=== PATIENT | male | born 1970 | race Caucasian/White ===

== ENCOUNTER 2025-02-08 13:43 | Outpatient (OUT) | payer OTHER, SELFPAY ==
--- NOTE | 2025-02-08 15:05 | PM.CN ---
Consult Note: HPI Data of Consult Patient: new to practice Consult date: 02/08/25 Requesting Physician: Jennifer Pérez NP Primary Care Provider: Delilah Savage NP Consult Narrative Reason for consult: low back and LLE pain Narrative: Louie Sterling a pleasant 54 year old male presents for evaluation of low back, left SIJ, and LLE pain >12 months unresponsive to > 6 weeks of PT/HEP, heat, ice, tylenol, NSAIDs. recently met with NS, however pt is not interested in surgical intervention. Pain 7/10 increasing to 10/10 at times, pain with all activities with temporary relief with position changes, squatting, sitting. notes numbness tingling to left leg and foot worsening. has failed tizanidine, motrin, tylenol cc:: CC: Jennifer Pérez NP Review of Systems ROS Musculoskeletal Reports: back pain, extremity pain and joint pain Exam Constitutional Documenting provider has reviewed patient's vital signs: yes Common normals: no apparent distress, oriented x3, healthy appearing, alert and well nourished General appearance: cooperative HENMT Common normals: normocephalic, hearing grossly normal bilaterally and moist oral mucous membranes Head and scalp: normocephalic Eye Common normals: PERRL Pupil: PERRL Neck & C-Spine Common normals: full ROM General: normal visual inspection Chest Common normals: inspection of chest normal Respiratory Common normals: normal respiratory effort, no retractions and no use of accessory muscles Back & Pelvis Lumbar spine/lower back: pain with ROM, lumbar spinal tenderness and straight leg raise positive left Sacroiliac joints: SI joint(s) abnormal Other: decreased sensation bilateral L4/5 left L5/S1 strength 4/5 in BLE left sij positive carlitos(patricks), gaenslens, thigh thrust, compression test Extremity Common normals: normal to inspection Neuro Common normals: oriented x3 Sensorium/orientation: alert Psych Common normals: mental status grossly normal, thought process normal, cooperative, affect normal, speech normal and activity/motor behavior normal Speech: normal speech Thought process: normal thought process Results Additional Findings Additional findings: If on a controlled substance or opioids, I have checked an [place]AR[place] report on this patient and there are no aberrancies noted in the prescribing history.??If on a controlled substance or opioid a drug screen was completed and reviewed within the last year, and if there has not been a drug screen completed we ordered one today to monitor higher risk, state monitored pain medication use. As part of providing excellent, safe, comprehensive care, the following was completed at our patient's visit: 1. A medication reconciliation and review to ensure accurate knowledge of current/active medications, including asking our patients to inform us about any kdsx-erj-temlvxn medications or herbal remedies/nutritional supplements/alternative remedies. 2. A review to specifically ensure our patients have had annual screening for screening for depression, screening for tobacco use, and screening for unhealthy alcohol use. For concerning screenings had a discussion with the patient, provided patient education, and recommended follow-up with primary care provider when appropriate. If patient noted with a risk of falling, they received education on strength, gait, and balance training to prevent future risk of falling. Portions of this note may have been carried over from the previous visit and updated as appropriate. Please note this office utilizes paper charting in addition to the electronic medical record. A list of current medications, vitals, and PMH is available there as the clinical staff outside of myself do not have access to [employer] charting during the clinic day operations. As part of providing quality comprehensive care the current medications, vitals, and PMH were reviewed in the paper chart. Assessment and Plan Assessment and Plan (1) Lumbar stenosis with neurogenic claudication: (2) Sacroiliitis: Plan The patient has had over 3 months of moderate to severe left SIJ, low back, and LLE pain with functional impairment and inadequate response to conservative care including NSAIDS (unless there are contraindication such as concurrent blood thinners), multiple oral or topical pain medications, and home exercise program/physical therapy.? Patient has completed >6 weeks of guided home exercise program and/or formal physical therapy program without relief of their symptoms.? The Oswestry Disability Index was completed, and the patient scored a 52%.? left L4-5 L5-S1 TFESI under fluoroscopy consider left SIJ injection dc ibuprofen, start meloxicam 7.5mg bid with food consider gabapentin f/u after injection
== END 2025-02-08 13:44 | disposition home or self-care (01) ==
PROVIDERS: Visit Provider Nurse Practitioner
DX: M48.062 Spinal stenosis, lumbar region with neurogenic claudication (principal); M46.1 Sacroiliitis, not elsewhere classified
CPT/HCPCS: G0463

== ENCOUNTER 2025-03-19 09:51 | Day surgery (SDC) | payer OTHER, SELFPAY ==
--- OUTSIDE RECORDS SUMMARY | 2025-03-19 09:55 | XMS_ITS | Encounter Summary ---
Author Organization [facility] Address [facility] [id number] [address] [place] [address] Care Team Providers Care Lumber Bearer Name Role Phone Delilah Savage MICROBIOLOGY TECHNICIAN-CORRECTION OFFICER HEAD Primary Care Provider + Encounter Details Date Type Department Care Team (Late st Contact Info) Description 02/08/2025 Results Follow-Up [facility], [facility] [address] [facility] [address] [place] [address] Madisyn Zapata, MICROBIOLOGY TECHNICIAN-CORRECTION OFFICER HEAD [address] [place] [address] MR lumbar spine without contrast Social History Tobacco Use Types Packs/Day Years Used Date Smoking Tobacco: Never Smokeless Tobacco: Never Alcohol Use Standard Drinks/Week Comments Not Currently 0 (1 standard drink = 0.6 oz pur e alcohol) Childcare Answer Date Recorded Childcare Unknown 06/07/2020 Employment Answer Date Recorded Employment Unknown 06/07/2020 Hunger Screening Answer Date Recorded Within the past 12 months we worried whether our food would run out before we got money to buy more. Never True 01/04/2025 Within the past 12 months th e food we bought just didn't last and we didn't have money to get more. Never True 01/04/2025 Purpose - Life Answer Date Recorded Purpose and direction in life Unknown Sex and Gender Information Value Date Recorded Sex Assigned at Not on file Legal Sex Male 8:50 PM EST Gender Identity Not on file Sexual Orientation Not on file documented as of this encounter Plan of Treatment Not on file documented as of this encounter Visit Diagnoses Not on filedocumented in this encounter Additional Health Concerns Assessment Noted Time A Body Mass Index follow-up plan has been documented for the patient 01/04/2025 5:01 PM EDT documented as of this encounter Care Teams Lumber Bearer Relationship Specialty Start Date End Date Delilah Savage APRN-CNP [address] [place] [address] PCP - General Nurse Practitioner 12/22/24 documented as of this encounter
--- OUTSIDE RECORDS SUMMARY | 2025-03-19 09:55 | XMS_ITS | Clinical Summary ---
Author Organization [facility] Address [facility] [id number] [address] [place] [address] Care Team Providers Care Sheep Sorter Name Role Phone Delilah Savage AUDITING MANAGER-WORKFORCE ANALYST Primary Care Provider + Allergies No known active allergies Medications losartan (COZAAR) 100 mg tablet 02/15/2023 Active omega-3 acid ethyl esters (LOVAZA) 1 gram capsule Take 1 capsule (1 g total) by mouth in the morning. 12/22/2024 Active tiZANidine (ZANAFLEX) 4 mg tablet Take 1 tablet (4 mg total) by mouth 3 (three) times a day as needed. 11/03/2024 Active ibuprofen (MOTRIN) 600 mg tablet Take 1 tablet (600 mg total) by mouth every 8 (eight) hours as needed for pain. 12/23/2024 Active amLODIPine (NORVASC) 5 mg tablet Take 1 tablet (5 mg total) by mouth in the morning. 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/01/2021 Lumbar spondylosis 10/01/2021 Encounters Date Type Department Care Team Description 02/19/2025 Telephone [facility] [address] [place] [address] Katelyn Solares CNA Pain Managment 02/09/2025 Telephone [facility] [address] [place] [address] Tali Mahoney RMA 02/08/2025 Results [facility] [address] [place] [phone] Madisyn Zapata, AUDITING MANAGER-WORKFORCE ANALYST MR lumbar spine without contrast 02/06/2025 4:25 PM EDT - 02/06/2025 11:59 PM EDT Hospital Encounter [facility] [address] [place] [phone] Chronic bilateral low back pain with left-sided sciatica; Lumbar facet arthropathy; Lumbar disc disease Discharge Disposition: Home 02/06/2025 Travel 01/16/2025 Telephone [facility] [address] [place] [phone] Tali Mahoney, A 01/04/2025 3:30 PM EDT Office Visit [facility] [address] [place] [phone] Madisyn Zapata, AUDITING MANAGER-WORKFORCE ANALYST Chronic bilateral low back pain with left-sided sciatica (Primary Dx); Lumbar facet arthropathy; Lumbar disc disease 12/22/2024 Orders Only [facility] [address] [place] [phone] Tali Mahoney, [facility] Back pain, unspecified back location, unspecified back pain laterality, unspecified chronicity (Primary Dx) from Last 3 Months Family History Medical History Relation Name Comments Cancer Father Cancer Mother Relation Name Status Comments Father Mother Social History Tobacco Use Types Packs/Day Years Used Date Smoking Tobacco: Never Smokeless Tobacco: Never Tobacco Cessation:Counseling Given: Not Answered Alcohol Use Standard Drinks/Week Comments Not Currently [...] on file Sexual Orientation Not on file Last Filed Vital Signs Vital Sign Reading Time Taken Comments Blood Pressure 142/86 01/04/2025 3:23 PM EDT Pulse 93 01/04/2025 3:23 PM EDT Temperature 36.7 C (98 F) 12/10/2021 11:26 AM EDT Respiratory Rate 20 12/10/2021 11:26 AM EDT Oxygen Saturation 97% 12/10/2021 11:26 AM EDT Inhaled Oxygen Concentration - - Weight 85.3 kg (188 lb) 01/04/2025 3:23 PM EDT Height 165.1 cm (5' 5 ) 01/04/2025 3:23 PM EDT Body Mass Index 31.28 01/04/2025 3:23 PM EDT Plan of Treatment Health Maintenance Due Date Last Done Comments Depression Screening 1981 DTaP,Tdap and Td Vaccines (1 - Tdap) 1988 Zoster (Shingles) Vaccine (1 of 2) 09/06/2019 Influenza Vaccine 01/29/2025 Adult BMI Follow Up Plan 01/04/2026 01/04/2025 Adult BMI Screening 01/04/2026 01/04/2025 Tobacco Screening 01/04/2026 01/04/2025 Medical Devices Not on file Procedures Procedure Name Priority Date/Time Associated Diagnosis Comments MR LUMBAR SPINE WO CONT Routine 02/06/2025 4:58 PM EDT Chronic bilateral low back pain with left-sided sciatica Lumbar facet arthropathy Lumbar disc disease from Last 3 Months Results * MR lumbar spine without contrast (02/06/2025 4:58 PM EDT) Anatomical Region Laterality Modality MSK, Neuro, Spine, L-spine, Spine Covera N/A Magnetic Resonance 02/08/2025 12:4 6 PM EDT Narrative 02/08/2025 12:53 PM EDT LUMBAR SPINE MRI WITHOUT CONTRAST History: Back pain persistent despite conservative management for greater than 6 weeks. Radiculopathy.Chronic bilateral low back pain with left-sided sciatica; Lumbar facet arthropathy; Lumbar disc disease Comparison: None. Technique: Multiplanar multisequence MR imaging of the lumbar spine was performed without contrast. Findings: Transitional lumbosacral anatomy with partial lumbarization of S1. Intercristal line approximates L4-5 disc space. Preserved lumbar vertebral body heights. Straightening typical lumbar lordosis. No substantial listhesis. No suspicious bone marrow replacing process. Modic 2 changes about L5-S1. Conus terminates at L2-3, no distal cord signal change. T12-L1:No substantial focal thecal sac or neural foraminal narrowing. L1-L2:No substantial focal thecal sac or neural foraminal narrowing. L2-L3:Disc bulge extends into the foraminal and extra foraminal regions. The mentum from thickening. Mild thecal sac and left greater than right neural frontal stenosis. L3-L4:Disc bulge extends into the foraminal and extra foraminal regions. Ligamentum flavum thickening. Mild thecal sac and bilateral neural frontal stenosis. L4-L5:Disc bulge, marginal disc osteophyte extends into the right greater than left foraminal and axial foraminal regions. Ligamentum flavum thickening. Moderate thecal sac stenosis. Moderate bilateral neural foraminal stenosis, right more so than left. Crowding of the left greater than right subtalar zone without bolivar nerve root impingement. L5-S1:Disc bulge, marginal disc osteophyte extends into the left greater than right foraminal and extra foraminal regions, notable peripheral displacement exiting left L5 nerve [series 10 image #[id number]]. Asymmetric crowding left-sided articular zone [series 10 image #20]. Moderate thecal sac stenosis. Moderate to severe left, lajt-zv-etdqpflh right, neural frontal stenosis. S1-S2: Near-complete disc space. Minimal thecal sac and neural foraminal stenosis. Left upper pole renal parenchymal volume loss. Impression: 1. Transitional lumbosacral anatomy, level reconciliation advised prior to intervention. Notable moderate to severe left L5-S1 neural foraminal stenosis, mass effect on exiting left L5 nerve, please correlate for associated symptoms. Notable asymmetric crowding of left L5-S1 subarticular zone, no bolivar nerve root impingement. 2. Additional notable degenerative changes at L4-5 with moderate thecal sac and bilateral neural frontal stenosis, right more so than left. Finalized by Rishabh Hernandez MD on 02/08/2025 12:53 PM Procedure Note Rishabh Hernandez MD - 02/08/2025 LUMBAR SPINE MRI WITHOUT CONTRAST History: Back pain persistent despite conservative management for greaterthan 6 weeks. Radiculopathy.Chronic bilateral low back pain withleft-sided sciatica; Lumbar facet arthropathy; Lumbar disc disease Comparison: None. Technique: Multiplanar multisequence MR imaging of the lumbar spine wasperformed without contrast. Findings: Transitional lumbosacral anatomy with partial lumbarization of S1.Intercristal line approximates L4-5 disc space. Preserved lumbar vertebralbody heights. Straightening typical lumbar lordosis. No substantiallisthesis. No suspicious bone marrow replacing process. Modic 2 changesabout L5-S1. Conus terminates at L2-3, no distal cord signal change. T12-L1:No substantial focal thecal sac or neural foraminal narrowing. L1-L2:No substantial focal thecal sac or neural foraminal narrowing. L2-L3:Disc bulge extends into the foraminal and extra foraminal regions.The mentum from thickening. Mild thecal sac and left greater than rightneural frontal stenosis. L3-L4:Disc bulge extends into the foraminal and extra foraminal regions.Ligamentum flavum thickening. Mild thecal sac and bilateral neural frontalstenosis. L4-L5:Disc bulge, marginal disc osteophyte extends into the right greaterthan left foraminal and axial foraminal regions. Ligamentum flavumthickening. Moderate thecal sac stenosis. Moderate bilateral neuralforaminal stenosis, right more so than left. Crowding of the left greaterthan right subtalar zone without bolivar nerve root impingement. L5-S1:Disc bulge, marginal disc osteophyte extends into the left greaterthan right foraminal and extra foraminal regions, notable peripheraldisplacement exiting left L5 nerve [series 10 image #[id number]]. Asymmetriccrowding left-sided articular zone [series 10 image #20]. Moderate thecalsac stenosis. Moderate to severe left, imyo-uf-gvljkvcb right, neural frontalstenosis. S1-S2: Near-complete disc space. Minimal thecal sac and neural foraminalstenosis. Left upper pole renal parenchymal volume loss. Impression: 1. Transitional lumbosacral anatomy, level reconciliation advised prior tointervention. Notable moderate to severe left L5-S1 neural foraminalstenosis, mass effect on exiting left L5 nerve, please correlate forassociated symptoms. Notable asymmetric crowding of left L5-V4fczsqlrdmwgh zone, no bolivar nerve root impingement. 2. Additional notable degenerative changes at L4-5 with moderate thecalsac and bilateral neural frontal stenosis, right more so than left. Finalized by Rishabh Hernandez MD on 02/08/2025 12:53 PM Madisyn Zapata AUDITING MANAGER-WORKFORCE ANALYST IMG MRI ORDERABLES Jes l Result from Last 3 Months Insurance [employer] Care Teams Sheep Sorter Relationship Specialty Start Date End Date Delilah Savage APRN-NESS [address] [place] [address] PCP - General Nurse Practitioner 12/22/24
--- OUTSIDE RECORDS SUMMARY | 2025-03-19 09:55 | XMS_ITS | Encounter Summary ---
Author Organization [facility] Address [id number] [address] [facility] [place] [address] Care Team Providers Care Meat Seafood Associate Name Role Phone Delilah Savage PLANER MILL GRADER-DRY PRIMER POWDER BLENDER Primary Care Provider + Encounter Details Date Type Department Care Team (Late st Contact Info) Description 02/09/2025 Telephone [facility] [address] [facility] [address] [place] [address] Tali Mahoney RMA Social History Tobacco Use Types Packs/Day Years [...] on file documented as of this encounter Miscellaneous Notes * Telephone Encounter - ELADIA Crowder - 02/09/2025 3:15 PM EDT Patient called today stating pain management gave him meloxicam to take instead of ibuprofen. Patient stated he read that meloxicam does not mix well with blood pressure medications and he doesn't want to take it. I advised him that you are out of the office until 02/21/25 and he can continue with his ibuprofen as long as he doesn't take the meloxicam. I also advised him he could call [facility] on Wednesday to discuss this issue with them. Patient stated he will wait to hear back from you. Also advised him I faxed his MRI results to pain management. * Telephone Encounter - DESMOND De La Garza - 02/09/2025 3:15 PM EDT He should discuss the use with pain management or whomever prescribes his BP medications. Meloxicamand Ibuprofen both can increase risk of renal impairment and elevated levels of potassium with Losartan and may decrease BP lowering effects with both of his BP meds. Taking NSAIDs with his BP medications may just require BP and lab monitoring. * Telephone Encounter - ELADIA Crowder - 02/09/2025 3:15 PM EDT LMOVM advising patient to contact the office to discuss recommendations. documented in this encounter Plan of Treatment Not on file documented as of this encounter Visit Diagnoses Not on filedocumented in this encounter Additional Health Concerns Assessment Noted Time A Body Mass Index follow-up plan has been documented for the patient 01/04/2025 5:01 PM EDT documented as of this encounter Care Teams Meat Seafood Associate Relationship Specialty Start Date End Date Delilah Savage APRN-CNP [address] [place] [address] PCP - General Nurse Practitioner 12/22/24 documented as of this encounter
--- OUTSIDE RECORDS SUMMARY | 2025-03-19 09:55 | XMS_ITS | Encounter Summary ---
Author Organization [employer] Sys tem Address [facility]-[id number] [address] [place] [address] Care Team Providers Care Project Drilling Engineer Name Role Phone Delilah Savage SERVICE TRANSFORMER REPAIR [facility] Primary Care Provider + Reason for Referral * Consultation (Routine) - Pending Review Specialty Diagnoses / Procedures Referred By Gem paez Referred To Contact Pain Medicine Diagnoses Chronic bilateral low back pain with left-sided sciatica Lumbar facet arthropathy Lumbar disc disease Madisyn Zapata APRN-CNP [address] [place] [phone] Phone: tel: fax: David Flynn MD [address] [place] [address] Phone: tel: fax: Referral ID Status Reason Start Date Expiration Date V isits Requested Visits Authorized [id number] Pending Review 01/17/2025 01/17/2026 1 1 Encounter Details Date Type Department Care Team (Late st Contact Info) Description 01/16/2025 Telephone [facility] [address] [place] [address] Tali Mahoney RMA Social History Tobacco Use [...] * Telephone Encounter - ELADIA Crowder - 01/16/2025 2:57 PM EDT [facility] Patient called today asking if you found him a new pain management location. Upon chart review, I advised him that you ordered a lumbar MRI and asked him if he has scheduled it. Patient stated he thought you were going to schedule the MRI. I advised him that the number to central scheduling was at the top of the MRI order and that he needs to call to schedule it. Patient stated he found his orderand will call central scheduling to get it scheduled. Patient asked if there is anything else he can take besides aspirin because that is not helping with the pain. * Telephone Encounter - DESMOND De La Garza - 01/16/2025 2:57 PM EDT I was awaiting MRI before referring to new pain management provider. Ibuprofen not helping. Tizanidine makes him tired so he only takes at night. I advised him to try taking Tylenol. Patient said his friend recommended Dr Melvin Salas [phone] in [facility] for pain management. When I look him up it says neurology. Will have to call office to see if they do lumbar pain injections. I will update patient when we get a hold of them. * Telephone Encounter - DESMOND De La Garza - 01/16/2025 2:57 PM EDT I spoke to Dr Salas's office and he does not do epidural type spinal injections only trigger point injections for muscular symptoms. Patient would be better off going to a true pain management provider. Would he like a referral to [facility] [phone] or [facility] [phone] * Telephone Encounter - ELADIA Crowder - 01/16/2025 2:57 PM EDT Patient notified and stated he will try [facility] for pain management. I advised patient I will callhim back if you put in the referral before getting his MRI results and if he doesn't hear from either of us, you will wait to see what the MRI results show. Patient verbalized understanding. * Telephone Encounter - DESMOND De La Garza - 01/16/2025 2:57 PM EDT Referral placed to [facility]. We can send referral now and then send MRI after. * Telephone Encounter - ELADIA Crowder - 01/16/2025 2:57 PM EDT Patient notified and verbalized understanding. Referral faxed to [facility], fax confirmation received. Patient scheduled for consult on 01/31/25. documented in this encounter Plan of Treatment Scheduled Referrals Name Type Priority Associated Diagnoses Order Schedule Ambulatory referral to Pain Management (Non-[facility]) Outpatient Referral Routine Chronic bilateral low back pain with left-sided sciatica Lumbar facet arthropathy Lumbar disc disease 1 Occurrences starting 01/17/2025 until 01/17/2026 documented as of this encounter Visit Diagnoses Diagnosis Chronic bilateral low back pain with left-sided sciatica- Primary Lumbar facet arthropathy Spondylosis of unspecified site without mention of myelopathy Lumbar disc disease Other and unspecified disc disorder of lumbar region documented in this encounter Additional Health Concerns Assessment Noted Time A Body Mass Index follow-up plan has been documented for the patient 01/04/2025 5:01 PM EDT documented as of this encounter Care Teams Project Drilling Engineer Relationship Specialty Start Date End Date Delilah Savage APRN-CNP [address] [place] [address] PCP - General Nurse Practitioner 12/22/24 documented as of this encounter
--- OUTSIDE RECORDS SUMMARY | 2025-03-19 09:55 | XMS_ITS | Clinical Summary ---
Author Organization [employer] [facility] Address [address], [address] [place] [address] Care Team Providers Care Tuck Pointer Name Role Phone Sagrario Delvalle VARNISH MAKER - CARDIOVASCULAR DISEASE SPECIALIST Primary Care Provider [phone] Allergies No known active allergies Medications amLODIPine (NORVASC) 5 MG tablet Take 1 tablet by mouth daily 11/07/2024 Active ibuprofen (ADVIL;MOTRIN) 600 MG tablet TAKE 1 TABLET BY MOUTH THREE TIMES DAILY WITH FOOD OR MILK NEEDED 11/03/2024 Active losartan (COZAAR) 100 MG tablet Take 1 tablet by mouth daily 11/02/2024 Active [place]-3 Fatty Acids (FISH OIL) 1000 MG capsule Take by mouth daily 08/30/2024 Active tiZANidine (ZANAFLEX) 4 MG tablet Take 1 tablet by mouth 3 times daily as needed 11/03/2024 Active Active Problems No known active problems Social History Tobacco Use Types Packs/Day Years Used Date Smoking Tobacco: Unknown Tobacco Cessation:Counseling Given: Not Answered Alcohol Use Standard Drinks/Week Comments Never 0 (1 standard drink = 0.6 oz pur e alcohol) Sex and Gender Information Value Date Recorded Sex Assigned at Not on file Legal Sex Male 3:57 PM EDT Gender Identity Not on file Sexual Orientation Not on file Last Filed Vital Signs Vital Sign Reading Time Taken Comments Blood Pressure 139/97 11/16/2024 1:35 PM EDT Pulse 69 11/16/2024 1:35 PM EDT Temperature - - Respiratory Rate - - Oxygen Saturation - - Inhaled Oxygen Concentration - - Weight 84.8 kg (187 lb) 11/16/2024 1:35 PM EDT Height - - Body Mass Index - - Plan of Treatment Health Maintenance Due Date Last Done Comments Depression Screen 1981 HIV screen 1984 Hepatitis C screen 09/06/1987 DTaP/Tdap/Td vaccine (1 - Tdap) 1988 Hepatitis B vaccine (1 of 3 - 19+ 3-dose series) 1988 Lipids 2009 Colonoscopy 2014 Colorectal Cancer Screen 2014 FIT/FOBT: Average risk 2014 Fecal-DNA (Cologuard): Average risk 2014 Sigmoidoscopy/CT colonography 2014 Pneumococcal 50+ years Vacci ne (1 of 1 - PCV) 09/06/2019 Shingles vaccine (1 of 2) 09/06/2019 Flu vaccine (#1) 12/29/2024 COVID-19 Vaccine (1 - 2023-2 5 season) 2025 Hepatitis A vaccine Aged Out No longe r eligible based on patient's age to complete this topic Hib vaccine Aged Out No longer eligi ble based on patient's age to complete this topic Meningococcal (ACWY) vaccine Aged Out No longer eligible based on patient's age to complete this topic Meningococcal B vaccine Aged Out No l onger eligible based on patient's age to complete this topic Polio vaccine Aged Out No longer elig ible based on patient's age to complete this topic Insurance [employer] [place] [employer] Care Teams Tuck Pointer Relationship Specialty Start Date End Date Sagrario Delvalle APRN - NP [address] [place] [address] PCP - General Nurse Practitioner 09/26/24
--- OUTSIDE RECORDS SUMMARY | 2025-03-19 09:55 | XMS_ITS | Clinical Summary ---
Author Organization [facility] Healthcare Address [address] [place] [address] Care Team Providers Care Tentering Machine Off Bearer Name Role Phone Unallocated, Martha Provider Primary Care Provi wilton Allergies No known active allergies Medications losartan (Cozaar) 100 MG tablet Take 100 mg by mouth 1 (one) time each day at the same time 02/15/2023 Active tiZANidine (Zanaflex) 4 MG tablet Take 4 mg by mouth 3 (three) times a day as needed 03/17/2023 Active omega-3 (fish oil) 1000 MG capsule Take 1 capsule by mouth 1 (one) time each day at the same time 03/23/2023 Active Active Problems Problem Noted Date Diagnosed Date Sensorineural hearing loss (SNHL), bilateral 02/2024 Left ear impacted cerumen 06/09/2023 Hypertension 06/07/2023 GERD (gastroesophageal reflux disease) SNHL (sensorineural hearing loss) 06/07/2023 Disorder of sacrum 10/01/2021 Lumbar neuritis 10/01/2021 Lumbar spondylosis 10/01/2021 Family History Medical History Relation Name Comments Hypertension Father Stroke Father Hypertension Mother Stroke Mother Relation Name Status Comments Father Mother Social History Tobacco Use Types Packs/Day Years Used Date Smoking Tobacco: Never Smokeless Tobacco: Never Tobacco Cessation:Counseling Given: Not Answered Alcohol Use Standard Drinks/Week Comments Not Currently 0 (1 standard drink = 0.6 oz pur e alcohol) Sex and Gender Information Value Date Recorded Sex Assigned at Not on file Legal Sex Male 8:56 AM EDT Gender Identity Not on file Sexual Orientation Not on file Last Filed Vital Signs Vital Sign Reading Time Taken Comments Blood Pressure 149/91 12/15/2023 1:32 PM EDT Pulse - - Temperature - - Respiratory Rate - - Oxygen Saturation - - Inhaled Oxygen Concentration - - Weight 83.5 kg (184 lb) 12/15/2023 1:32 PM EDT Height 165.1 cm (5' 5 ) 12/15/2023 1:32 PM EDT Body Mass Index 30.62 12/15/2023 1:32 PM EDT Plan of Treatment Health Maintenance Due Date Last Done Comments CT Colonography 1969 Colonoscopy 1969 Colorectal Cancer Screening 1969 FIT-DNA 1969 FIT 1969 FOBT 1969 Sigmoidoscopy 1969 Influenza Vaccine (#1) 2025 Insurance [employer] Care Teams Tentering Machine Off Bearer Relationship Specialty Start Date End Date Unallocated, Noms Provider, [address] [place], [place] [id number] PCP - General 03/24/23
[2025-03-19 10:04] VITALS: BP 139/83; PULSE 75; TEMP 36.2; O2SAT 100
[2025-03-19 10:43] VITALS: BP 145/67; PULSE 72; O2SAT 97
[2025-03-19 10:44] VITALS: BP 140/65; PULSE 67; O2SAT 97
[2025-03-19] MEDS: BUPIVACAINE HCL 0.25% PF 25 MG/10 ML VIAL INJ (10:45)
[2025-03-19] MEDS: LIDOCAINE HCL 2% 400 MG/20 ML MDV INJ (10:45)
[2025-03-19] MEDS: 0.9 % SODIUM CHLORIDE 10 ML SYRINGE - SALINE FLUSH INJ (10:45)
[2025-03-19] MEDS: IOHEXOL 240 MG/ML - 10 ML VIAL 24 MG INJ (10:45)
[2025-03-19] MEDS: METHYLPREDNISOLONE ACETATE 80 MG/ML VIAL INJ (10:46)
--- NOTE | 2025-03-19 10:50 | P.ON_ITS ---
Date of procedure: 03/19/25 Pre-op diagnosis: Pain due to lumbar stenosis with neurogenic claudication Post-op diagnosis: same as pre-op Procedure: Procedure: Left L4-5, L5-S1 transforaminal epidural steroid injection Medications: Bupivacaine 0.25% 2cc, lidocaine 2% 1cc, depomedrol 80mg The patient was seen and examined in the preoperative holding area.? Informed consent was obtained and placed on the chart.? Patient was brought to the medical procedure unit and placed in the prone position where a timeout was completed verifying the correct patient, procedure site, position, and planned special equipment using sterile aseptic technique.? Under direct fluoroscopic visualization a 25-gauge Quincke tipped spinal needle was advanced to the designated neural foramen where contrast dye was injected to show adequate spread.? The needle was inserted at level left L4-5. There was no evidence of vascular or adverse uptake.? Epidural spread was appreciated.? The above- mentioned injectate was then placed in a 1.5 mL aliquot preceded by negative aspiration.? The needle was removed. The needle was inserted and the procedure repeated at level left L5-S1.? The surgery site was covered.? Patient was taken to the postprocedural recovery area and monitored for an appropriate length of time before found suitable for discharge in the accompaniment of a responsible adult. Anesthesia: Local Surgeon: David Flynn Pathology: none sent Condition: stable Disposition: no change
== END 2025-03-19 10:54 | disposition home or self-care (01) ==
PROVIDERS: Visit Provider Anesthesiology
DX: M48.062 Spinal stenosis, lumbar region with neurogenic claudication (principal); M54.50 Low back pain, unspecified
CPT/HCPCS: 64483; 64484; J0665; J1010; Q9966

== ENCOUNTER 2025-03-29 14:23 | Outpatient (OUT) | payer OTHER, SELFPAY ==
--- OUTSIDE RECORDS SUMMARY | 2024-11-14 11:15 | XMS_ITS ---
Author Organization [facility] vices Address [address] [place], [place] [address] Care Team Providers Care Geophysical Engineer Name Role Phone Delilah Savage Primary Care Provider Regina Villalta Unavailable [phone] REASON FOR VISIT Recall (A)(54) Social History Sex Assigned At : Social History Observation Description Sex Assigned At Male Encounters Encounter Location Date Provider Diagnosis Dental Main [address] [place] [id number] 11/14/2024 Regina Villalta Plan Of Treatment Next Appt Details Provider Name:Nusrat Hallman , 04/11/2025 02:30:00 PM, [address] [place] [address], [id number], Provider Name:Nusrat Hallman , 05/28/2025 12:45:00 PM, [address] [place] [address], [id number], Provider Name:Nusrat Hallman , 06/19/2025 03:15:00 PM, [address] [place] [address], [id number], Provider Name:Delilah Savage , 06/20/2025 01:15:00 PM, [address] [place] [address], [phone], Progress Notes * Janell VEGADOB:1970 (54 yo M)Acc No.[id number]:11/14/2024 Patient:?GARY, Janell :?Regina Villalta DDSDOB:1970???Age:54 Y ???Sex:MaleDate:11/14/2024Phone:[phone]:[address], [place], [id number]:Delilah Savage Subjective: * Chief Complaints: * 1 . Recall (A)(54). * Medical History: Objective: * Vitals: Assessment: Plan: * Treatment: * Billing Information: * Visit Code: * Procedure Codes: * Electronic signature of Regina Villalta DDS on 03/29/2025 at 02:26 PM EDT Sign off status: Pending * Provider: Matt Villalta DDS Date: 0 11/14/2024 Generated for Printing/Faxing/eTransmitting on:?03/29/2025 02:26 PM EDT
--- OUTSIDE RECORDS SUMMARY | 2024-12-05 10:00 | XMS_ITS ---
Author Organization [facility] vices Address [address] [place], [place] [address] Care Team Providers Care Erp Specialist Name Role Phone Delilah Savage Primary Care Provider REASON FOR VISIT 1 mo HTN Social History Sex Assigned At : Social History Observation Description Sex Assigned At Male Encounters Encounter Location Date Provider Diagnosis Main [address] [place], [place] [phone] 12/05/2024 Delilah Savage Plan Of Treatment Next Appt Details Provider Name:Nusrat Hallman , 04/11/2025 02:30:00 PM, [address] [place] [address], [phone], Provider Name:Nusrat Hallman , 05/28/2025 12:45:00 PM, [address] [place] [address], [phone], Provider Name:Nusrat Hallman , 06/19/2025 03:15:00 PM, [address] [place] [address], [phone], Provider Name:Delilah Savage , 06/20/2025 01:15:00 PM, [facility] [address], [phone], Progress Notes * Janell VEGADOB:1970 (54 yo M)Acc No.[id number]:12/05/2024 Medical Note Patient: Chen GUTIERREZJanell :?Delilah SavageDOB:1970???Age:54 Y???Sex: MaleDate:12/05/2024Phone:[phone]:[address], [id number] Subjective: * Chief Complaints: * 1 . 1 mo HTN. * Medical History: Objective: * Vitals: Assessment: Plan: * Treatment: * Billing Information: * Visit Code: * Procedure Codes: * Electronic signature of ELVIA Madera on 03/29/2025 at 02:27 PM EDTSign off status: Pending * Provider: Neto Savage Date: 0 12/05/2024 Generated for Printing/Faxing/eTransmitting on:?03/29/2025 02:27 PM EDT
--- OUTSIDE RECORDS SUMMARY | 2025-02-22 11:30 | XMS_ITS ---
Author Organization [facility] vices Address [address] [place], [place] [address] Care Team Providers Care Cleaning Supervisor Name Role Phone Delilah Savage Primary Care Provider REASON FOR VISIT 3 month HTN, Back pain Social History Sex Assigned At : Social History Observation Description Sex Assigned At Male Encounters Encounter Location Date Provider Diagnosis Main [address] [place], [place] [id number] 02/22/2025 Delilah Savage Plan Of Treatment Next Appt Details Provider Name:Nusrat Hallman , 04/11/2025 02:30:00 PM, [address] [place] [address], [phone], Provider Name:Nusrat Hallman , 05/28/2025 12:45:00 PM, [address] [place] [address], [phone], Provider Name:Nusrat Hallman , 06/19/2025 03:15:00 PM, [address] [place] [address], [phone], Provider Name:Delilah Savage , 06/20/2025 01:15:00 PM, [address] [place], [place] [address] [place] [address], [phone], Progress Notes * Janell VEGADOB:1970 (54 yo M)Acc No.[id number]:02/22/2025 Medical Note Patient: Chen GUTIERREZ Janell :?Delilah SavageDOB:1970???Age:54 Y???Sex: MaleDate:02/22/2025Phone:[phone]:[address], [place], [id number] Subjective: * Chief Complaints: * 1 . 3 month HTN, Back pain. * Medical History: Objective: * Vitals: Assessment: Plan: * Treatment: * Billing Information: * Visit Code: * Procedure Codes: * Electronic signature of ELVIA Madera on 03/29/2025 at 02:27 PM EDTSign off status: Pending * Provider: Neto Savage Date: 0 02/22/2025 Generated for Printing/Faxing/eTransmitting on:?03/29/2025 02:27 PM EDT
--- OUTSIDE RECORDS SUMMARY | 2025-03-19 09:30 | XMS_ITS ---
Author Organization [facility] vices Address [address] [place], [place] [id number] Care Team Providers Care Newspaper Copy Editor Name Role Phone Ember Savagesa Primary Care Provider Allergies No Known Allergies REASON FOR VISIT Back Pain & HTN Medications Medication SIG (Take, Route, Frequency, Duration) Notes Start Date End Date Status Erythromycin 5 MG/GM 1 application into the lower eyelid of affected eye Ophthalmic 4 times a day; Duration: 3 days 5ActiveamLODIPine Besylate 5 MG1 tablet Orally Once a day11/07/2024 ActiveIbuprofen 600 MG1 tablet with food or milk as needed Orally Three times a day; Duration: 90 [id number]-[id number]-ubye Ethyl Esters 1 GMTAKE 1 CAPSULE BY MOUTH ONCE DAILY; Duration: 90ActivetiZANidine HCl 4 MG1 tablet as needed Orally Three times a day2ActiveLosartan Potassium 100 MGTAKE 1 TABLET BY MOUTH DAILYActivetraMADol HCl 50 MG1 tablet as needed Orally twice dailyOARRS REVIEWED, OK TO FILL5Active Social History Sex Assigned At : Social History Observation Description Sex Assigned At Male Vital Signs Temperature 98.0 degrees Fahrenheit 03/19/20 25 Weight 189 lbs 03/19/2025 Height 65 in 03/19/2025 BMI 31.45 kg/m2 03/19/2025 Blood pressure systolic 133 mm Hg 03/19/20 25 Blood pressure diastolic 80 mm Hg 025 Heart Rate 84 /min 03/19/2025 Respiratory Rate 17 /min 03/19/2025 Oximetry 97 % 03/19/2025 Weight-kg 85.73 kg 03/19/2025 Gerardo Gurrola 025 01:26:45 PM EDT > Encounters Encounter Location Date Provider Diagnosis Main [address] , [place] [id number] 03/19/2025 Delilah Hussein Lumbar radiculopathy M54.16 ; Essential hypertension I10 ; BMI 31.0-31.9,adult Z68.31 and Obesity, Class I, BMI 30-34.9 E66.811 Assessments Encounter Date Diagnosis (ICD Code) Assessment Notes Treatment Notes Treatment Clinical Notes Section Notes 03/19/2025 Lumbar radiculopathy (ICD-10 - M 54.16) Pt's pain is well-controlled on medication, will continue w/ current regimen. CSA & UDS UTD Reviewed risks vs benefits of medication and the risk for addiction from the medication. OARRS Reviewed w/ no irregularities F/U 3 months & PRN 03/19/2025Essential hypertension (ICD-10 - I10) Hypertension is stable at this time. Continue current medications. Encouraged healthy diet and exercise. F/U 3 months & PRN 03/19/2025MI 31.0-31.9,adult (ICD-10 - Z68.31)03/19/2025Obesity, Class I, BMI 30-34.9 (ICD-10 - E66.811) Plan Of Treatment Medication Medication Name Sig Start Date Stop Date Notes amLODIPine Besylate 5 MG 1 tablet Orally Once a day Losartan Potassium 100 MGTAKE 1 TABLET BY MOUTH DAILYtraMADol HCl 50 MG1 tablet as needed Orally twice daily03/04/2025OARRS REVIEWED, OK TO FILLTreatment Notes Assessment Notes Lumbar radiculopathy Pt's pain is well-controlled on medication, will continue w/ current regimen. CSA & UDS UTD Reviewed risks vs benefits of medication and the risk for addiction from the medication. OARRS Reviewed w/ no irregularities F/U 3 months & PRN Essential hypertension Hypertension is stable at this time. Continue current medications. Encouraged healthy diet and exercise. F/U 3 months & PRN Next Appt Details Follow Up: 3 months Back Xiomara n & HTN, Reason: Provider Name:Nusrat Hallman 04/11/2025 02:30:00 PM, [address] [place] [address], [phone], Provider Name:Nusrat Hallman , 05/28/2025 12:45:00 PM, [address] [place] [address], [phone], Provider Name:Nusrta Wilsondarcy , 06/19/2025 03:15:00 PM, [address] [place] [address], [phone], Provider Name:Delilah Savage , 06/20/2025 01:15:00 PM, [address] [place] [address], [phone], Progress Notes * Janell VEGADOB:1970 (54 yo M)Acc No.[id number]:03/19/2025 Medical Note Patient: Janell ABBASI :?Delilah SavageDOB:1970???Age:54 Y???Sex: MaleDate:03/19/2025Phone:[phone]:[address] [place], [id number] In:01:08 PM EST Subjective: * Chief Complaints: * B ack Pain & HTN * HPI: ???Interim History:?LUMBAR RADICULOPATHY UDS & CSA 02/15/25 UTD Medication: Tramadol 50mg 1BID, last RX sent 03/04/25 Pt follows w/ [facility] currently, had his first injection today Pt will come back at the end of the month for a follow-up Pt reports he is feeling a relief of pain w/ his Tramadol; Pharmacy inappropriately gave pt 7D supply twice HYPERTENSION Medication: Losartan 100mg 1QD, Amlodipine 5mg 1QD Patient denies headache, vision changes, chest pain, shortness of breath/difficulty breathing, decreased exercise tolerance, dizziness/lightheadedness, syncope/near syncope, orthopnea, fatigue, and sweats. * ROS: ???Negative except mentioned above in the HPI. * Medical History: * Surgical History: t onsillectomy and adenoidectomy right hip surgery- broken femur left ankle-plates and screws * Hospitalization/Major Diagno stic Procedure: D enies Past Hospitalization * Family History: F ather: , stroke, diagnosed with Hypertension. M other: , Stroke, diagnosed with Hypertension. P aternal Grand Father: . P aternal Grand Mother: . Maternal Grand Father: . M aternal Grand Mother: . B rother: unknown.?Sister: unknown, 2 . 3 brother(s) , 3 sister(s) . . Valentina Gurrolao 03/19/2025 01:29:39 PM EDT >. * Medications: T akingErythromycin 5 MG/GM Ointment 1 application into the lower eyelid of affected eye Ophthalmic 4 times a day tiZANidine HCl 4 MG Tablet 1 tablet as needed Orally Three times a day Sathw-3-elqf Ethyl Esters 1 GM Capsule TAKE 1 CAPSULE BY MOUTH ONCE DAILY Ibuprofen 600 MG Tablet 1 tablet with food or milk as needed Orally Three times a day amLODIPine Besylate 5 MG Tablet 1 tablet Orally Once a day Losartan Potassium 100 MG Tablet TAKE 1 TABLET BY MOUTH DAILY traMADol HCl 50 MG Tablet 1 tablet as needed Orally twice daily , Notes to Pharmacist: OARRS REVIEWED, OK TO FILLMedication List reviewed and reconciled with the patientTaking Erythromycin 5 MG/GM Ointment 1 application into the lower eyelid of affected eye Ophthalmic 4 times a day Taking tiZANidine HCl 4 MG Tablet 1 tablet as needed Orally Three times a day Taking Qcsky-1-gwrp Ethyl Esters 1 GM Capsule TAKE 1 CAPSULE BY MOUTH ONCE DAILY Taking Ibuprofen 600 MG Tablet 1 tablet with food or milk as needed Orally Three times a day Taking amLODIPine Besylate 5 MG Tablet 1 tablet Orally Once a day Taking Losartan Potassium 100 MG Tablet TAKE 1 TABLET BY MOUTH DAILY Taking traMADol HCl 50 MG Tablet 1 tablet as needed Orally twice daily , Notes to Pharmacist: OARRS REVIEWED, OK TO FILLMedication List reviewed and reconciled with the patient * Allergies: N .K.D.A.no[Allergies Verified] Objective: * Vitals: T emp:98.0F, Wt:189lbs, Ht: 65 in, BMI:31.45Index, BP:133/80mm Hg, HR:84/min, RR:17/min, Pain scale:51-10, Oxygen sat %:97%, Wt-k.73 kg, Body Surface Area: 1.98. Gerardo Gurrola 03/19/2025 01:26:45 PM EDT >. * Examination: ???CQM Exceptions: ?Currently taking Aspirin:?Aspirin Use:?No?General Examination: ?General appearance:?alert, pleasant, well-nourished and inno acute distress.?Head:?normocephalic, atraumatic.?Heart:?regular rate and rhythm without murmurs, gallops, clicks or rubs.?Lungs:?clear to auscultation bilaterally, with good air movement and no rales, rhonchi or wheezes.?Back:?sharp pain elicited w/ rotation, flexion, and extension, radiates down leg?.?Psych:?alert and oriented x 3 , cooperative with exam, normal affect / mood , speech is clear and coherent.? Assessment: * Assessment: 1.?Lumbar radiculopathy - M54.16 (Primary)???2.?Essential hypertension - I1 0???3.?BMI 31.0-31.9,adult - Z68.31???4.?Obesity, Class I, BMI 30-34.9 - E66.811??? Plan: * Treatment: Continue traMADol HCl Tablet, 50 MG, 1 tablet as needed, Orally, twice daily, Notes to Pharmacist: OARRS REVIEWED, OK TO FILL.?? Notes: Pt's pain is well-controlled on medication, will continue w/ current regimen. CSA & UDS UTD Reviewed risks vs benefits of medication and the risk for addiction from the medication. OARRS Reviewed w/ no irregularities F/U 3 months & PRN??2.?Essential hypertension? Continue Losartan Potassium Tablet, 100 MG, TAKE 1 TABLET BY MOUTH DAILY;?Continue amLODIPine Besylate Tablet, 5 MG, 1 tablet, Orally, Once a day.?? Notes: Hypertension is stable at this time. Continue current medications. Encouraged healthy diet and exercise. F/U 3 months & PRN?? * Procedure Codes: 3 079F HTN DIAST BP = 80-784026F HTN SYST BP = 130 - 139 * Preventive Medicine: ??Counseling:?Communication to patient:?Counseling for nutrition provided?Yes ?Counseling for physical activity provided?Yes * Follow Up: 3 months Back Pain & HTN * Billing Information: * Visit Code: 87980 Office Visit Est 30-39 minutes. * Procedure Codes: 3079F HTN DIAST BP = 80-89. 3075F HTN SYST BP = 130 - 139. * Sign off status: Completed true * Provider: Neto Savage Date: 1 Generated for Printing/Faxing/eTransmitting on:?03/29/2025 02:26 PM EDT History and Physical Notes * Examination CategorySub-CategoryDetailNotesCategory NotesGeneral ExaminationGeneral appearance:alert, pleasant, well-nourished and in no acute distressHead: normocephalic, atraumaticHeart:regular rate and rhythm without murmurs, gallops, clicks or rubsLungs:clear to auscultation bilaterally, with good air movement and no rales, rhonchi or wheezesBack:sharp pain elicited w/ rotation, flexion, and extension, radiates down legPsych:alert and oriented x 3 , cooperative with exam, normal affect / mood , speech is clear and coherentCQM ExceptionsCurrently taking Aspirin:Aspirin Use:: No
--- OUTSIDE RECORDS SUMMARY | 2025-03-29 14:26 | XMS_ITS | Clinical Summary ---
Author Organization [employer] Address [id number] [address] [place] [address] Care Team Providers Care Crawler Dragline Operator Name Role Phone Delilah Savage LEGAL PROJECT MANAGER-PERSONALIZED LIVING MANAGER Primary Care Provider + Allergies No known active allergies Medications MedicationSigDispense QuantityRefillsLast FilledStart DateEnd DateStatus losartan (COZAAR) 100 mg tablet 3Active omega-3 acid ethyl esters (LOVAZA) 1 gram capsule Take 1 capsule (1 g total) by mouth in the morning.5Active tiZANidine (ZANAFLEX) 4 mg tablet Take 1 tablet (4 mg total) by mouth 3 (three) times a day as needed.11/03/2024 Active ibuprofen (MOTRIN) 600 mg tablet Take 1 tablet (600 mg total) by mouth every 8 (eight) hours as needed for pain. 5Active amLODIPine (NORVASC) 5 mg tablet Take 1 tablet (5 mg total) by mouth in the morning.5Active Active Problems ProblemNoted DateDiagnosed DateDisorder of crczgi4110/01/2021Lumbar neuritis 10/01/2021Lumbar pqzypstqfbm78/04/2022 Encounters DateTypeDepartmentCare JotbFjdnwaeekth49/22/2025Telephone [facility] [address] [place] [address] Katelyn Solares CNA Pain Zsjxserbj41/12/2025Telephone [facility] [address] [place] [address] Tali Mahoney RMA 02/08/2025Results Follow-Up [facility] [address] [place] [address] Madisyn Zapata, LEGAL PROJECT MANAGER-PERSONALIZED LIVING MANAGER MR lumbar spine without mkuinfis50/09/2025 4:25 PM EDT - 02/06/2025 11:59 PM EDT Hospital Encounter [facility] [address] [place] [id number] Chronic bilateral low back pain with left-sided sciatica; Lumbar facet arthropathy; Lumbar disc disease Discharge Disposition: Home02/06/20255686Yzdlmu06/19/2025Telephone [facility] [address] [place] [address] Tali Mahoney, [facility] 01/04/2025 3:30 PM EDTOffice Visit [facility] [address] [place] [address] Madisyn Zapata, LEGAL PROJECT MANAGER-PERSONALIZED LIVING MANAGER Chronic bilateral low back pain with left-sided sciatica (Primary Dx); Lumbar facet arthropathy; Lumbar disc diseasefrom Last 3 Months Family History Medical HistoryRelationNameCommentsCancerFatherCancerMotherRelationNameStatus CommentsFatherDeceasedMotherDeceased Social History Tobacco UseTypesPacks/DayYears UsedDateSmoking Tobacco: NeverSmokeless Tobacco: Never Tobacco Cessation:Counseling Given: Not Answered Alcohol UseStandard Drinks/WeekCommentsNot Currently0 (1 standard drink = 0.6 oz pure alcohol)ChildcareAnswerDate MuqbglykMzppeglqiUsochro74/08/2021mployment AnswerDate TyyqctseScajidoptuZwnfaze48/08/2021Hunger ScreeningAnswerDate RecordedWithin the past 12 months we worried whether our food would run out before we got money to buy more.Never True01/04/2025Within the past 12 months the food we bought just didn't last and we didn't have money to get more.Never True08/07/2025Purpose - LifeAnswerDate RecordedPurpose and direction in life Lluwshg8006/11/2020ex and Gender InformationValueDate RecordedSex Assigned at BirthNot on fileLegal MyeCpuf7106/07/2020 8:50 PM ESTGender IdentityNot on file Sexual OrientationNot on file Last Filed Vital Signs Vital SignReadingTime TakenCommentsBlood Yapkmfgp854/8608 3:23 PM EDT Ffdju797701/04/2025 3:23 PM OKYQtvvbvgjbam85.7 ??C (98 ??F)12/10/2021 11:26 AM EDT Respiratory Ispi752412/10/2021 11:26 AM EDTOxygen Ahgdwomcjs75%12/10/2021 11:26 AM EDTInhaled Oxygen Concentration--Hpzzzy66.3 kg (188 lb)01/04/2025 3:23 PM EDT Smfobq479.1 cm (5' 5 )01/04/2025 3:23 PM EDTBody Mass Index31.28001/04/2025 3:23 PM EDT Plan of Treatment Health MaintenanceDue DateLast DoneCommentsDepression Iplowoyjv00/08/1982 DTaP,Tdap and Td Vaccines (1 - Tdap)1988Zoster (Shingles) Vaccine (1 of 2) 09/06/2019Influenza Zhmsagn1001/29/2025dult BMI Follow Up Plan01/04/2026 01/04/2025dult BMI Zkjjzeytv90/07/00344401/04/2025Tobacco Tycwcjphn88/07/2026 01/04/2025 Medical Devices Not on file Procedures Procedure NamePriorityDate/TimeAssociated DiagnosisCommentsMR LUMBAR SPINE WO MEIOBldgmyd81/09/2025 4:58 PM EDT Chronic bilateral low back pain with left-sided sciatica Lumbar facet arthropathy Lumbar disc disease from Last 3 Months Results * MR lumbar spine without contrast (02/06/2025 4:58 PM EDT)Anatomical Region LateralityModalityMSK, Neuro, Spine, L-spine, Spine CoveraN/AMagnetic ResonanceSpecimen (Source)Anatomical Location / LateralityCollection Method / VolumeCollection TimeReceived Time02/08/2025 12:46 PM EDT Narrative 02/08/2025 12:53 PM EDT [...] thecal sac stenosis. Moderate to severe left, gskq-uc-iufgcyun right, neural frontal stenosis. S1-S2: Near-complete disc [...] Moderate thecalsac stenosis. Moderate to severe left, gdau-ms-bdmalgei right, neural frontal stenosis. S1-S2: Near-complete disc space. Minimal thecal sac and neural foraminal stenosis. Left upper pole renal parenchymal volume loss. Impression: 1. Transitional lumbosacral anatomy, level reconciliation advised prior to intervention. Notable moderate to severe left L5-S1 neural foraminalstenosis, mass effect on exiting left L5 nerve, please correlate forassociated symptoms. Notable asymmetric crowding of left L5-H2kcdwkkoyzums zone, no bolivar nerve root impingement. 2. Additional notable degenerative changes at L4-5 with moderate thecalsac and bilateral neural frontal stenosis, right more so than left. Finalized by Rishabh Hernandez MD on 02/08/2025 12:53 PM Authorizing ProviderResult TypeResult StatusMadisyn Zapata LEGAL PROJECT MANAGER-CNP[facility] MRI ORDERABLESFinal Result from Last 3 Months Insurance * Guarantor: Louie Sterling IVAccount TypeRelation to PatientDate of PhoneBilling AddressWorkers YnntWvbv62/08/[address] [address] Care Teams Team MemberRelationshipSpecialtyStart DateEnd Date Delilah Savage, [employer] [address] [place] [address] PCP - GeneralNurse Practitioner12/22/24
--- OUTSIDE RECORDS SUMMARY | 2025-03-29 14:27 | XMS_ITS | Clinical Summary ---
Author Organization [facility] Healthcare Address [address] [place] [address] Care Team Providers Care Greens Tier Name Role Phone Unallocated, Nomdenny Provider Primary Care Provi wilton Allergies No known active allergies Medications MedicationSigDispense QuantityRefillsLast FilledStart DateEnd DateStatus losartan (Cozaar) 100 MG tablet Take 100 mg by mouth 1 (one) time each day at the same time02/15/2023ctive tiZANidine (Zanaflex) 4 MG tablet Take 4 mg by mouth 3 (three) times a day as plcvwn7703/17/2023ctive omega-3 (fish oil) 1000 MG capsule Take 1 capsule by mouth 1 (one) time each day at the same time03/23/2023ctive Active Problems ProblemNoted DateDiagnosed DateSensorineural hearing loss (SNHL), bilateral 06/09/2023Left ear impacted animmmx6406/09/20237316Prfnaktivkok22/08/2024GERD (gastroesophageal reflux disease)06/07/2023SNHL (sensorineural hearing loss) 06/07/2023isorder of ewtxwy0710/01/2021Lumbar jehhsudr71/04/2022Lumbar ippwxoropmc44/04/2022 Family History Medical HistoryRelationNameCommentsHypertensionFatherStrokeFatherHypertension MotherStrokeMotherRelationNameStatusCommentsFatherMother Social History Tobacco UseTypesPacks/DayYears UsedDateSmoking Tobacco: NeverSmokeless Tobacco: Never Tobacco Cessation:Counseling Given: Not Answered Alcohol UseStandard Drinks/WeekCommentsNot Currently0 (1 standard drink = 0.6 oz pure alcohol)Sex and Gender InformationValueDate RecordedSex Assigned at Not on fileLegal GxnJnpe74/25/2023 8:56 AM EDTGender IdentityNot on fileSexual OrientationNot on file Last Filed Vital Signs Vital SignReadingTime TakenCommentsBlood Koiexccu262/9107 1:32 PM EDT Pulse--Temperature--Respiratory Rate--Oxygen Saturation--Inhaled Oxygen Concentration--Mnwpht04.5 kg (184 lb)12/15/2023 1:32 PM LYOCyuodq871.1 cm (5' 5 )12/15/2023 1:32 PM EDTBody Mass Index30.62012/15/2023 1:32 PM EDT Plan of Treatment Health MaintenanceDue DateLast DoneCommentsCT Keiuhxtihwcz76/08/1970Colonoscopy 1969Colorectal Cancer Sztocsyor61/08/1970FIT-DNA1969FIT1969 FOBT1969 4968Bnziplypfxobt30/08/1970Influenza Vaccine (#1)2025 Insurance Care Teams Team MemberRelationshipSpecialtyStart DateEnd Date Unallocated, [place] MD Terri [address] [place] [address] PCP - Ppbgdzm13/25/23
--- OUTSIDE RECORDS SUMMARY | 2025-03-29 14:27 | XMS_ITS | Patient Health Record ---
Author Organization [facility] vices Address [address] [place], [place] [id number] Care Team Providers Care Cotton Farmer Name Role Phone Delilah Savage Primary Care Provider Nusrat Hallman Unavailable [phone] Sagrario Delvalle Unavailable [phone] Regina Villalta Unavailable [phone] Dolly, Lana Unavailable [phone] Allergies No Known Allergies Results Component Value Reference Range Notes DRUGS OF ABUSE 8+ PANEL URIN E - SCREEN REFLEX TO CONFIRMATION Reviewed date:02/18/2025 10:11:35 PM Interpretation: Performing Lab: Notes/Report: CLIA NUMBER [id number] CAP ACCREDITATION AUID [id number] SALES ADVISORY MANAGER: KAYLIE AKERS M.D. [facility] [employer] [address] [place] [address] UNLESS OTHERWISE INDICATED, ALL TESTING PERFORMED AT: OXIDANT <=200 mg/L CREATININE, URINARY >=20 mg/dL PHENCYCLIDINE 25 ng/mL OXYCODONE 100 ng/mL OPIATES 300 ng/mL METHAQUALONE 300 ng/mL METHADONE 300 ng/mL THC(MARIJUANA) 20 ng/mL COCAINE 150 ng/mL BENZODIAZEPINES 100 ng/mL BARBITURATES 200 ng/mL AMPHETAMINES 300 ng/mL ETHYL ALCOHOL 20 mg/dL Cutoffs for Drug Screen Testing: ETHANOL SCREEN, CLINICAL NEGATIVE AMPHETAMINESNEGATIVEBARBITURATESNEGATIVEBENZODIAZEPINENEGATIVECOCAINENEGATIVETHC (CANNABIS)NEGATIVEMETHADONENEGATIVEOPIATESNEGATIVEPHENCYCLIDINENEGATIVEOXYCODONE NEGATIVECREATININE,[id number] Reason For Referral Reason eval and treat Diagnosis 1 Chronic back pain (M 54.9) Referral Organization Main Referring Provider First Name Sagrario Referring Provider Last Name Mook Referring Provider Speciality Nurse Gabi cervantes Referred Provider [facility] Andrei matthews Referred Provider Specialty Pain Managem ent General Notes Kadie Jackson 04/2025 12:51:07 PM >{ {TOFIRSTNAME}} This is [facility] following up on an outstanding referral that was ordered by your provider. Please call our office at , so we can _update our records., Cindy Hayes 10/11/2024 09:16:42 AM >Pt. called in stating appt. is scheduled for 11/16/2024. Abigail Shyann 11/17/2024 11:06:52 AM >Pt. called to schedule appt. w/ pcp to discuss other options as he went to this appt. and it did not go as expected- called office and requested office notes, they stated they will fax them over. , Mirian Tesfaye 11/17/2024 12:26:09 PM >see scanned report Referral Priority Routine Referral Appointment Date 11/16/2024 Reason PT FOLLOWED W/ [facility], XR LUMBAR COMPLETED RECENTLY, PLS EVAL & TREAT Diagnosis 1 Lumbar radiculopathy (M54.16) Referral Organization Main Referring Provider First Name Delilah Referring Provider Last Name Hussein Referred Provider [facility] Referred Provider Specialty Spine Specia list General Notes Otoniel Earl 12/21 11:25:29 AM >referral fax sent, Otoniel Earl 12/26/2024 02:55:23 PM >CAN due to no response Referral Priority Routine Medications Medication SIG (Take, Route, Frequency, Duration) Notes Start Date End Date Status Erythromycin 5 MG/GM 1 application into the lower eyelid of affected eye Ophthalmic 4 times a day; Duration: 3 days 5ActiveamLODIPine Besylate 5 MG1 tablet Orally Once a day11/07/2024 ActiveLosartan Potassium 100 MGTAKE 1 TABLET BY MOUTH DAILYActivetraMADol HCl 50 MG1 tablet as needed Orally twice dailyOARRS REVIEWED, OK TO FILL03/04/2025 ActiveIbuprofen 600 MG1 tablet with food or milk as needed Orally Three times a day; Duration: 90 [id number] Ethyl Esters 1 GMTAKE 1 CAPSULE BY MOUTH ONCE DAILY; Duration: 90ActivetiZANidine HCl 4 MG1 tablet as needed Orally Three times a day2Active Social History Tobacco Use: Social History Observation Description Date Details (start date - stop date) Never Smoker NA - NA Sex Assigned At : Social History Observation Description Sex Assigned At Male CAGE-AID Questionnaire (2018 Edition) Question Answer Notes Have you ever felt that you ought to cut down on your drinking or drug use? No patient entered data Have people annoyed you by c riticizing your drinking or drug use? No patient entered data Have you ever felt bad or gu ilty about your drinking or drug use? No patient entered data Have you ever had a drink or used drugs first thing in the morning to steady your nerves or to get rid of a hangover? No patient entered data CAGE-AID Score 0 InterpretationNegativePRAPARE Question Answer Notes Date Completed/Updated: 09/25/2024 ashleye nt entered data What is your current housing situation? I have housing patient entered data Are you worried about losing your housing? No patient entered data What is the highest level of school that you have finished? High school diploma or GED patient entered data What is your current work situation? Otherwise unemployed but not seeking work (ex. 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 Check all that apply Other (please write in notes) Has lack of transportation kept you from medical appointments, meetings, work or from getting things needed for daily living?NoHow often do you see or talk to people that you care about and feel close to? (For example: talkingto friends on the phone, visiting friends or family, going to orthodox or club meetings)1 or 2 times a weekpatient entered dataHow stressed are you? Stress is when someone feels tense, nervous, anxious, or can't sleep at nightbecause their mind is troubledA little bitpatient entered dataIn the past year have you spent more than 2 nights in a row in a long term, longterm, shelter center, orjuvenile correctional facility?Nopatient entered dataAre you a refugee?Nopatient entered dataWhat country are you from?[place] Statespatient entered dataDo you feel physically and emotionally safe where you currently live?Yespatient entered dataIn the past year, have you been afraid of your partner or ex-partner?I have not had a partner in the past yearpatient entered data PRAPARE Score:7Tobacco Control (Standard) Question Answer Notes Tobacco use: Nonsmoker Section Notes: Nutrition counseling focusin g on a low sodium and low sugar diet discussed with the patient, as well as appropriate weekly exercise and increased activity as tolerated to work towards a more optimal body mass index for improved overall health. Problems Problem Type SNOMED Code ICD Code Onset Dates Problem Status W/U Status Risk Notes Problem Mixed hyperlipidemia (553145168) Mixed hy perlipidemia (E78.2) ActiveconfirmedProblemEssential hypertension (08639518)Essential hypertension (I10)ActiveconfirmedProblemLate effect of injury (05464371)Blunt eye trauma, left, sequela (S05.92XS)ActiveconfirmedProblemLumbar radiculopathy (381287373) Lumbar radiculopathy (M54.16)Activeconfirmed Vital Signs Heart Rate 84 /min 03/19/2025 Joe Gurrola 03/19/2025 01:26:45 PM EDT > Temperature 98.0 degrees Fahrenheit 03/19/2025 Gerardo Grossman 03/19/2025 01:26:45 PM EDT > Respiratory Rate 17 /min 03/19/2025 Gerardo Gurrola 03/19/2025 01:26:45 PM EDT > Oximetry 97 % 03/19/2025 Joe Gurrola 03/19/2025 01:26:45 PM EDT > Blood pressure diastolic 80 mm Hg 03/19/2025 Gerardo Rivera 03/19/2025 01:26:45 PM EDT > Weight-kg 85.73 kg 03/19/2025 Joe Gurrola vando 03/19/2025 01:26:45 PM EDT > Height 65 in 03/19/2025 Joe Gurrola vando 03/19/2025 01:26:45 PM EDT > Blood pressure systolic 133 mm Hg 03/19/2025 Vanessa Grossmanando 03/19/2025 01:26:45 PM EDT > Weight 189 lbs 03/19/2025 Joe Gurrola vando 03/19/2025 01:26:45 PM EDT > BMI 31.45 kg/m2 03/19/2025 Gurrola, Joe vando 03/19/2025 01:26:45 PM EDT > Encounters Encounter Location Date Provider Diagnosis [facility] [address] [place], [place] [id number] 04/13/2024 Regina Villalta Dietary counseling Z 71.3 ; Exercise counseling Z71.82 ; BMI 27.0-27.9,adult Z68.27 ; Encounter for dental examination and cleaning with abnormal findings Z01.21 and Dental caries into dentine K02.62 [address] [place], [place] [id number] 05/03/2024 Delilah Savage Pre-diabetes R73.03 ; Essential hypertension I10 ; Obesity (BMI 30-39.9) E66.9 and BMI 30.0-30.9,adult Z68.[address] [id number] 09/25/2024 Sagrario Mook Chronic back pain M5 4.9 and Lumbar radiculopathy M54.[address] [place] [id number] 11/07/2024 Delilah Savage Essential hypertensi on I10 ; Obesity, Class I, BMI 30-34.9 E66.811 and BMI 30.0-30.9,adult Z68.30 [facility] [address] [place], [place] [id number] 11/10/2024 Nusrat Hallman Encounter for dental examination and cleaning with abnormal findings Z01.21 ; Encounter for screening for dental disorders Z13.84 ; Dietary counseling Z71.3 ; Exercise counseling Z71.82 ; BMI 30.0-30.9,adult Z68.30 ; Dental caries into dentine K02.62 and Necrosis of pulp K04.1 Main [address] [place], [place] [id number] 11/21/2024 [facility] Essential hypertensi on I10 ; Lumbar radiculopathy M54.16 ; BMI 30.0-30.9,adult Z68.30 and Obesity, Class I, BMI 30-34.9 E66.811 [facility] [address] [facility] [place] [address] 12/06/2024 Lana Dolly Left eye injury, ini tial encounter S05.92XA Main [address] [place], [place] [id number] 02/15/2025 [facility] Lumbar radiculopathy M54.16 ; Essential hypertension I10 ; Mixed hyperlipidemia E78.2 ; BMI 31.0-31.9,adult Z68.31 ; Obesity, Class I, BMI 30-34.9 E66.811 and High risk medication use Z79.899 [facility] [address] [place], [place] [id number] 03/05/2025 Nusrat Hallman Dental caries into dentine K02.62 [address] [place], [place] [id number] 03/19/2025 [facility] Lumbar radiculopathy M54.16 ; Essential hypertension I10 ; BMI 31.0-31.9,adult Z68.31 and Obesity, Class I, BMI 30-34.9 E66.811 [address] [place], [place] [id number] 04/19/2024 Sagrario HendricksNeal Chronic low back richie n M54.50 [facility] [address] [place], [place] [id number] [facility]ie n M54.50 and Medication refill Z76.[address] [place] [id number] 10/10/2024 Sagrario Mook Medication refill Z7 6.0 [address] [place], [place] [id number] 12/21/2024 Lana Dolly Chronic back pain M5 4.9 Main [address] [place], [place] [id number] 02/01/2025 [facility] Essential hypertensi on I10 Main [address] [place] [id number] [facility] M54.16 [facility] [address] [place] [id number] 02/[facility] Lumbar [facility]opathy M54.16 [facility] [address] [place] [id number] 03/12/20[facility] Lumbar [facility]opathy M54.16 Assessments Encounter Date Diagnosis (ICD Code) Assessment Notes Treatment Notes Treatment Clinical Notes Section Notes 04/13/2024 Dietary counseling (ICD-10 - Z71 .3) 4Chronic low back pain (ICD-10 - M54.50)05/03/2024Essential hypertension (ICD-10 - I10) HTN stable. Will continue current medications. Encouraged healthy diet and exercise. F/u 6 months & PRN Pt has not had labs since 02/2023, pt declines labs re-checked at this time 5Chronic low back pain (ICD-10 - M54.50)09/25/2024Lumbar radiculopathy (ICD-10 - M54.16)5Chronic back pain (ICD-10 - M54.9)10/10/2024 Medication refill (ICD-10 - Z76.0)11/07/2024Essential hypertension (ICD-10 - I10) Pt BP elevated in-office today, pt has symptoms of chest wall pain, double vision on occasion, someheadaches Continue w/ Losartan at this time RX sent for Amlodipine 5mg Pt provided w/ BP log Pt continues to decline labs F/U 1 month or PRN 4Pre-diabetes (ICD-10 - R73.03) Pt declined A1C at this visit. Pt reports his diet is a lot brick cleaner and he watches what he eats more. Pt agreeable to add HgA1C on his labs next time they are drawn, rather than a finger poke. 11/07/2024Obesity, Class I, BMI 30-34.9 (ICD-10 - E66.811)11/10/2024Encounter for dental examination and cleaning with abnormal findings (ICD-10 - Z01.21) 11/21/2024Essential hypertension (ICD-10 - I10)HTN stable. Will continue current medications. Encouraged healthy diet and exercise. F/u 3 months & PRN 11/21/2024Lumbar radiculopathy (ICD-10 - M54.16) Referral sent for [employer] Operator at this time, as pt no longer would like to see Pain Management Piero Kendrick Pt does not wish to go to PT, has been in the past for 6 months, no relief Continue w/ Ibuprofen for pain F/U 3 months or PRN 12/06/2024Left eye injury, initial encounter (ICD-10 - S05.92XA) Patient Advice: Apply warm compresses to the affected eye for 10-15 minutes, 3-5 times daily to help relieve the stye and promote drainage. Keep the eyelid area clean by gently washing with mild soap or using eyelid wipes. Avoid rubbing or squeezing the stye. If symptoms worsen, such as increased pain, swelling, redness, discharge, or if you experience changes in vision, seek immediate care at the emergency room or see an cad application support specialist promptly. 12/21/2024hronic back pain (ICD-10 - M54.9)02/01/2025Essential hypertension (ICD-10 - I10)02/15/2025Essential hypertension (ICD-10 - I10) HTN stable. Will continue current medications. Encouraged healthy diet and exercise. F/u 3 months & PRN Pt declines labs 02/15/2025Lumbar radiculopathy (ICD-10 - M54.16) D/C'd Meloxicam, pt never took d/t concerns w/ possible interacton w/ BP meds he takes Informed pt all NSAIDS will show this warning, uch as Diclofenac I desired offering pt Pt declined, would like something that does not interact w/ meds After reviewing risks vs benefits and pain level of pt on a daily basis persisting for months now, Will start pt on Tramadol 50mg. Informed pt to notify Pain Management of this change, as he follows w/ Joellen now. Pt does not have an active CSA w/ Pain Management, only going for Back Injections Completed CSA in-office today, ordered UDS, will send in Tramadol pending results for 50mg 1BID F/U 1 month or PRN 02/18/2025Lumbar radiculopathy (ICD-10 - M54.16)02/27/2025Lumbar radiculopathy (ICD-10 - M54.16)03/05/2025Dental caries into dentine (ICD-10 - K02.62) 03/12/2025Lumbar radiculopathy (ICD-10 - M54.16)03/19/2025Essential hypertension (ICD-10 - I10) Hypertension is stable at this time. Continue current medications. Encouraged healthy diet and exercise. F/U 3 months & PRN 03/19/2025Lumbar radiculopathy (ICD-10 - M54.16) Pt's pain is well-controlled on medication, will continue w/ current regimen. CSA & UDS UTD Reviewed risks vs benefits of medication and the risk for addiction from the medication. OARRS Reviewed w/ no irregularities F/U 3 months & PRN 03/19/2025MI 31.0-31.9,adult (ICD-10 - Z68.31)02/15/2025Mixed hyperlipidemia (ICD-10 - E78.2) Encouraged healthy diet and exercise Pt declines labs 5BMI 30.0-30.9,adult (ICD-10 - Z68.30)11/10/2024Encounter for screening for dental disorders (ICD-10 - Z13.84)11/07/2024MI 30.0-30.9,adult (ICD-10 - Z68.30)06/05/2024Medication refill (ICD-10 - Z76.0)04/13/2024Exercise counseling (ICD-10 - Z71.82)05/03/2024Obesity (BMI 30-39.9) (ICD-10 - E66.9)04/13/2024MI 27.0-27.9,adult (ICD-10 - Z68.27)05/03/2024MI 30.0-30.9,adult (ICD-10 - Z68.30) 11/21/2024Obesity, Class I, BMI 30-34.9 (ICD-10 - E66.811)02/15/2025MI 31.0- 31.9,adult (ICD-10 - Z68.31)03/19/2025Obesity, Class I, BMI 30-34.9 (ICD-10 - E66.811)11/10/2024Dietary counseling (ICD-10 - Z71.3)02/15/2025Obesity, Class I, BMI 30-34.9 (ICD-10 - E66.811)11/10/2024Exercise counseling (ICD-10 - Z71.82) 04/13/2024Encounter for dental examination and cleaning with abnormal findings (ICD-10 - Z01.21)04/13/2024ental caries into dentine (ICD-10 - K02.62) 11/10/2024MI 30.0-30.9,adult (ICD-10 - Z68.30)02/15/2025High risk medication use (ICD-10 - Z79.899)11/10/2024Dental caries into dentine (ICD-10 - K02.62) 11/10/2024Necrosis of pulp (ICD-10 - K04.1) Plan Of Treatment Next Appt Details Provider Name:Nusrat Hallman , 04/11/2025 02:30:00 PM, [address] [place] [address], [phone], Provider Name:Nusrat Hallman , 05/28/2025 12:45:00 PM, [address] [place] [address], [phone], Provider Name:Nusrat Hallman , 06/19/2025 03:15:00 PM, [address] [place] [address], [phone], Provider Name:Delilah Savage , 06/20/2025 01:15:00 PM, [address] [place] [address], [phone], Insurance Providers Payer Name Payer Address Payer Phone Subscriber Number Group Number Insured Name Patient Relationship to Insured Coverage Start Date Coverage End Date [employer] [address] [place], [place] [id number] Darby Sterling - patient is the [id number] 2022[employer] D[employer] MCD[address] [place] [phone], WespayalElian - patient is the [id number] 2022Medicaid ABD after [address] [place], [place] [id number], WespayalElian - patient is the [id number] 2022 DMedicaid ABD after CaresourceDentaquestPO [address] [place], [place] [id number], WesleySelf - patient is the [id number] 2022 Medical (General) History Medical History History ICD Code HTN (hypertension) I10 GERD (gastroesophageal reflux disease) K 21.9 Lumbar spondylolysis M43.06 Lumbar neuritis M54.16 Spinal stenosis of lumbar re gion, unspecified whether neurogenic claudication present M48.061 L4-L5 disc bulge M51.36 Mixed hyperlipidemia E78.2 Pre-diabetes R73.03 Hypertriglyceridemia E78.1 Surgical History Surgery Date(Month/Year) tonsillectomy and adenoidectomy right hip surgery- broken femurleft ankle-plates and screws
--- NOTE | 2025-03-29 14:58 | P.CN_ITS ---
Consult Note: HPI Data of Consult Patient: known to practice within the last 3 years Consult date: 03/29/25 Requesting Physician: Jennifer Pérez NP Primary Care Provider: Delilah Savage NP Consult Narrative Reason for consult: low back and LLE pain Narrative: Louie Sterling a pleasant 54 year old male presents for evaluation of low back, left SIJ, and LLE pain >12 months unresponsive to > 6 weeks of PT/HEP, heat, ice, tylenol, NSAIDs. recently met with NS, however pt is not interested in surgical intervention. pt initiated provider guided HEP from PCP july 2024 and attempted at least 15mins a day twice weekly greater than 6 weeks without improvement, continues to engage ongoing as tolerated. Pain 6/10 increasing to 10/10 at times, pain with all activities with temporary relief with position changes, squatting, sitting. notes numbness tingling to left leg and foot worsening over the last 6 months. has failed tizanidine, motrin, tylenol. pt did not start meloxicam due to concerns of HTN. Pt recently underwent left L4/5 L5/S1 TFESI with moderate ongoing relief in low back pain put continues to endorse moderate to severe left leg pain, burning, and numbness. cc:: CC: Jennifer Pérez NP Review of Systems ROS Musculoskeletal Reports: back pain, extremity pain and joint pain Meds Home Medications and Allergies Home Medications ?Medication ?Instructions ?Recorded ?Confirmed ?Type amlodipine 5 mg tablet 5 mg PO DAILY 02/08/2503/19 History losartan 100 mg tablet 100 mg PO DAILY 02/08/25 History omega-3 fatty acids 1,000 mg PO DAILY 02/08/25 1 History tramadol 50 mg tablet mg 03/19/25 History Allergies Allergy/AdvReac Type Severity Reaction Status Date / Time No Known Drug Allergies Allergy Verified 03/19/25 10:07 Exam Constitutional Documenting provider has reviewed patient's vital signs: yes Common normals: no apparent distress, oriented x3, healthy appearing, alert and well nourished General appearance: cooperative [facility] Common normals: normocephalic, hearing grossly normal bilaterally and moist oral mucous membranes Head and scalp: normocephalic Eye Common normals: PERRL Pupil: PERRL Neck & C-Spine Common normals: full ROM General: normal visual inspection Chest Common normals: inspection of chest normal Respiratory Common normals: normal respiratory effort, no retractions and no use of accessory muscles Back & Pelvis Lumbar spine/lower back: pain with ROM, lumbar spinal tenderness and straight leg raise positive left Sacroiliac joints: SI joint(s) abnormal Other: decreased sensation bilateral L4/5 left L5/S1 strength 4/5 in BLE left sij positive carlitos(patricks), gaenslens, thigh thrust, compression test Extremity Common normals: normal to inspection Neuro Common normals: oriented x3 Sensorium/orientation: alert Psych Common normals: mental status grossly normal, thought process normal, cooperative, affect normal, speech normal and activity/motor behavior normal Speech: normal speech Thought process: normal thought process Results Additional Findings Additional findings: If on a controlled substance or opioids, I have checked an OARRS report on this patient and there are no aberrancies noted in the prescribing history.??If on a controlled substance or opioid a drug screen was completed and reviewed within the last year, and if there has not been a drug screen completed we ordered one today to monitor higher risk, state monitored pain medication use. As part of providing excellent, safe, comprehensive care, the following was completed at our patient's visit: 1. A medication reconciliation and review to ensure accurate knowledge of current/active medications, including asking our patients to inform us about any [id number]-[id number] medications or herbal remedies/nutritional schulte pplements/alternative remedies. 2. A review to specifically ensure our patients have had annual screening for screening for depression, screening for tobacco use, and screening for unhealthy alcohol use. For concerning screenings had a discussion with the patient, provided patient education, and recommended follow-up with primary care provider when appropriate. If patient noted with a risk of falling, they received education on strength, gait, and balance training to prevent future risk of falling. Portions of this note may have been carried over from the previous visit and updated as appropriate. Please note this office utilizes paper charting in addition to the electronic medical record. A list of current medications, vitals, and PMH is available there as the clinical staff outside of myself do not have access to [employer] charting during the clinic day operations. As part of providing quality comprehensive care the current medications, vitals, and PMH were reviewed in the paper chart. Assessment and Plan Assessment and Plan (1) Lumbar stenosis with neurogenic claudication: (2) Lumbar radiculopathy: (3) Sacroiliitis: (4) Bulge of lumbar disc without myelopathy: Plan The patient has had over 3 months of moderate to severe left SIJ, low back, and LLE pain with functional impairment and inadequate response to conservative care including NSAIDS (unless there are contraindication such as concurrent blood thinners), multiple oral or topical pain medications, and home exercise program/physical therapy.? Patient has completed >6 weeks of guided home exercise program and/or formal physical therapy program without relief of their symptoms.? The Oswestry Disability Index was completed, and the patient scored a 34%.? previously 52% left L4-5 L5-S1 TFESI #2 under fluoroscopy for significant stenosis with NC, lumbar disc bulge, and lumbar radiculopathy in efforts to improve quality of life, functional ability, and overall pain as pt is not interested in surgical intervention consider left SIJ injection continue tramadol through PCP at this time continue HEP as tolerated f/u after injection
== END 2025-03-29 14:24 | disposition home or self-care (01) ==
LOC: PM 14:23
PROVIDERS: Visit Provider Nurse Practitioner
DX: M48.062 Spinal stenosis, lumbar region with neurogenic claudication (principal); M54.16 Radiculopathy, lumbar region; M46.1 Sacroiliitis, not elsewhere classified; M51.369 Other intervertebral disc degeneration, lumbar region without mention of lumbar back pain or lower extremity pain
CPT/HCPCS: G0463

== ENCOUNTER 2025-04-23 09:34 | Day surgery (SDC) | payer OTHER, SELFPAY ==
--- OUTSIDE RECORDS SUMMARY | 2024-11-14 10:15 | XMS_ITS ---
Author Organization [facility] vices Address [address] [place], [place] [address] Care Team Providers Care Fund Controller Name Role Phone Delilah Savage Primary Care Provider Regina Villalta Unavailable [phone] REASON FOR VISIT Recall (A)(54) Social History Sex Assigned At : Social History Observation Description Sex Assigned At Male Encounters Encounter Location Date Provider Diagnosis Dental Main [address] [place], [place] [phone] 11/14/2024 Regina Villalta Plan Of Treatment Next Appt Details Provider Name:Nusrat Hallman , 05/28/2025 12:45:00 PM, [address] [place] [address], [phone], Provider Name:Nusrat Hallman , 06/19/2025 03:15:00 PM, [address] [place] [address], [phone], Provider Name:Delilah Savage , 06/20/2025 01:15:00 PM, [address] [place] [address], [phone], Progress Notes * Janell VEGADOB:1970 (54 yo M)Acc No.[id number]:11/14/2024 Patient:?Janell Vega :?Regina Villalta DDSDOB:1970???Age:54 Y ???Sex:MaleDate:11/14/2024Phone:[phone]:[address], [place], [id number]:Delilah Savage Subjective: * Chief Complaints: * R arianna (A)(54) * Electronic signature of Regina Villalta DDS on 04/23/2025 at 09:40 AM EST Sign off status: Pending * Provider: Mtat Villalta DDS Date: 0 11/14/2024 Generated for Printing/Faxing/eTransmitting on:?04/23/2025 09:40 AM EST
--- OUTSIDE RECORDS SUMMARY | 2024-12-05 09:00 | XMS_ITS ---
Author Organization [facility] vices Address [address] [facility] [place] [address] Care Team Providers Care Analytics Analyst Name Role Phone Delilah Savage Primary Care Provider [phone] REASON FOR VISIT 1 mo HTN Social History Sex Assigned At : Social History Observation Description Sex Assigned At Male Encounters Encounter Location Date Provider Diagnosis Main [address] [place], [place] [phone] 12/05/2024 Delilah Savage Plan Of Treatment Next Appt Details Provider Name:Nusrat Hallman , 05/28/2025 12:45:00 PM, [address] [place] [address], [phone], Provider Name:Nusrat Hallman , 06/19/2025 03:15:00 PM, [address] [place] [address], [id number], Provider Name:Delilah Savage , 06/20/2025 01:15:00 PM, [facility] [address], [place], [phone], Progress Notes * Janell VEGADOB:1970 (54 yo M)Acc No.[id number]:12/05/2024 Medical Note Patient: Janell Vasquez :?Delilah SavageDOB:1970???Age:54 Y???Sex: MaleDate:12/05/2024Phone:[phone]:[address] [id number] Subjective: * Chief Complaints: * 1 mo HTN Billing Information: * Procedure Codes: * Electronic signature of ELVIA Madera on 04/23/2025 at 09:40 AM ESTSign off status: Pending * Provider: Neto Savage Date: 0 12/05/2024 Generated for Printing/Faxing/eTransmitting on:?04/23/2025 09:40 AM EST
--- OUTSIDE RECORDS SUMMARY | 2025-02-22 10:30 | XMS_ITS ---
Author Organization [facility] vices Address [address] [place], [place] [address] Care Team Providers Care Parent Educator Name Role Phone Hussein Delilah Primary Care Provider REASON FOR VISIT 3 month HTN, Back pain Social History Sex Assigned At : Social History Observation Description Sex Assigned At Male Encounters Encounter Location Date Provider Diagnosis Main [address] [place], [place] [phone] 02/22/2025 Delilah Savage Plan Of Treatment Next Appt Details Provider Name:Nusrat Hallman , 05/28/2025 12:45:00 PM, [address] [place] [address], [phone], Provider Name:Nusrat Hallman , 06/19/2025 03:15:00 PM, [address] [place] [address], [phone], Provider Name:Delilah Savage , 06/20/2025 01:15:00 PM, [facility] [address], [phone], Progress Notes * Janell VEGADOB:1970 (54 yo M)Acc No.[id number]:02/22/2025 Medical Note Patient: Janell Vasquez :?Delilah SavageDOB:1970???Age:54 Y???Sex: MaleDate:02/22/2025Phone:[phone]:[address] [place], [id number] Subjective: * Chief Complaints: * 3 month HTN, Back pain * Electronic signature of ELVIA Madera on 04/23/2025 at 09:40 AM ESTSign off status: Pending * Provider: Neto Savage Date: 0 02/22/2025 Generated for Printing/Faxing/eTransmitting on:?04/23/2025 09:40 AM EST
--- OUTSIDE RECORDS SUMMARY | 2025-04-11 09:30 | XMS_ITS ---
Author Organization [facility] vices Address [address] [place], [place] [address] Care Team Providers Care Cupola Mechanic Name Role Phone Delilah Savage Primary Care Provider Nusrat Hallman Unavailable [phone] REASON FOR VISIT Rest #30-B, #31-B [place] Social History Sex Assigned At : Social History Observation Description Sex Assigned At Male Encounters Encounter Location Date Provider Diagnosis [facility] [address] [place] [address] [id number] 04/11/2025 Nusrat Hallman Plan Of Treatment Next Appt Details Provider Name:Nusrat Hallman , 05/28/2025 12:45:00 PM, [address] [place] [address], [phone], Provider Name:Nusrat Hallman , 06/19/2025 03:15:00 PM, [address] [place] [address], [phone], Provider Name:Delilah Savage , 06/20/2025 01:15:00 PM, [address] [place] [address], [id number], Progress Notes * Janell VEGADOB:1970 (54 yo M)Acc No.[id number]:04/11/2025 Patient:?Janell Vega :?Nusrat Hallman DDSDOB:1970???Age:54 Y ???Sex:MaleDate:04/11/2025Phone:[phone]:[address] , [place], [id number]:Delilah Savage Subjective: * Chief Complaints: * R est #30-B, #31-B [place] Billing Information: * Procedure Codes: * Electronic signature of Nusrat Hallman DDS on 04/23/2025 at 09:39 AM ESTSign off status: Pending * Provider: Tony Hallman DDS Date: 06/11/2024 Generated for Printing/Faxing/eTransmitting on:?04/23/2025 09:39 AM EST
--- OUTSIDE RECORDS SUMMARY | 2025-04-23 09:39 | XMS_ITS | Clinical Summary ---
Author Organization [facility] Address [id number] [address] [place] [address] Care Team Providers Care Automotive Parts Advisor Name Role Phone Delilah Savage ACO COORDINATOR-FILTRATION PLANT MECHANIC Primary Care Provider + Allergies No known [...] morning.5Active Active Problems ProblemNoted DateDiagnosed DateDisorder of ejgyfp9910/01/2021Lumbar neuritis 10/01/2021Lumbar toxdnfysgds84/04/2022 Encounters DateTypeDepartmentCare ZwydXaheiiwkkei57/22/2025Telephone [facility] [address] [place] [address] Katelyn Solares CNA Pain Olwjemeab07/12/2025Telephone [facility] [address] [place] [address] Tali Mahoney RMA 02/08/2025Results Follow-Up [facility] [address] [place] [address] Madisyn Zapata, ACO COORDINATOR-FILTRATION PLANT MECHANIC MR lumbar spine without gjmmzomv79/09/2025 4:25 PM EDT - 02/06/2025 11:59 PM EDT Hospital Encounter [facility] [address] [place] [address] Chronic bilateral low back pain with left-sided sciatica; Lumbar facet arthropathy; Lumbar disc disease Discharge Disposition: Home02/06/2025Travelfrom Last 3 Months Family History Medical HistoryRelationNameCommentsCancerFatherCancerMotherRelationNameStatus CommentsFatherDeceasedMotherDeceased Social History Tobacco UseTypesPacks/DayYears UsedDateSmoking Tobacco: NeverSmokeless Tobacco: Never Tobacco Cessation:Counseling Given: Not Answered Alcohol UseStandard Drinks/WeekCommentsNot Currently0 (1 standard drink = 0.6 oz pure alcohol)ChildcareAnswerDate ObgpgpdeSzppdxzniRrgwhyz76/08/2021mployment AnswerDate FaktlwvsCvntekdacqPwiuczi16/08/2021Hunger ScreeningAnswerDate RecordedWithin the past 12 months we worried whether our food would run out before we got money to buy more.Never True01/04/2025Within the past 12 months the food we bought just didn't last and we didn't have money to get more.Never True01/04/2025Purpose - LifeAnswerDate RecordedPurpose and direction in life Lpcftjj3906/11/2020ex and Gender InformationValueDate RecordedSex Assigned at BirthNot on fileLegal TurKdhh3006/07/2020 8:50 PM ESTGender IdentityNot on file Sexual OrientationNot on file Last Filed Vital Signs Vital SignReadingTime TakenCommentsBlood Nhbetdug877/8601/04/2025 3:23 PM EDT Ljbtg8457 3:23 PM XGATlceosvmncm99.7 ??C (98 ??F)12/10/2021 11:26 AM EDT Respiratory Rttf082712/10/2021 11:26 AM EDTOxygen Kglbgeexer21%12/10/2021 11:26 AM EDTInhaled Oxygen Concentration--Yeqnhw51.3 kg (188 lb)01/04/2025 3:23 PM EDT Gkqjpc250.1 cm (5' 5 )01/04/2025 3:23 PM EDTBody Mass Index31.28001/04/2025 3:23 PM EDT Plan of Treatment Health MaintenanceDue DateLast DoneCommentsDepression Wndmwckyn67/08/1982 DTaP,Tdap and Td Vaccines (1 - Tdap)1988Zoster (Shingles) Vaccine (1 of 2) 09/06/2019Influenza Wwlekbc6001/29/2025dult BMI Follow Up Plan01/04/2026 01/04/2025dult BMI Gwmehanwy79Tobacco Yurtzksms54/07/2026 01/04/2025 Medical Devices Not on file Procedures Procedure NamePriorityDate/TimeAssociated DiagnosisCommentsMR LUMBAR SPINE WO MICQZxxvdln38/09/2025 4:58 PM EDT Chronic bilateral low back [...] thecal sac stenosis. Moderate to severe left, olmj-yd-wvgpyiai right, neural frontal stenosis. S1-S2: Near-complete disc [...] Moderate thecalsac stenosis. Moderate to severe left, zzuv-gf-mjaiphsq right, neural frontal stenosis. S1-S2: Near-complete disc space. Minimal thecal sac and neural foraminal stenosis. Left upper pole renal parenchymal volume loss. Impression: 1. Transitional lumbosacral anatomy, level reconciliation advised prior to intervention. Notable moderate to severe left L5-S1 neural foraminalstenosis, mass effect on exiting left L5 nerve, please correlate forassociated symptoms. Notable asymmetric crowding of left L5-X9tqqahkwdetfm zone, no bolivar nerve root impingement. 2. Additional notable degenerative changes at L4-5 with moderate thecalsac and bilateral neural frontal stenosis, right more so than left. Finalized by Rishabh Hernandez MD on 02/08/2025 12:53 PM Authorizing ProviderResult TypeResult StatusMadisyn Zapata ACO COORDINATOR-CNPIMG MRI ORDERABLESFinal Result from Last 3 Months Insurance Care Teams Team MemberRelationshipSpecialtyStart DateEnd Date Delilah Savage APRN-FILTRATION PLANT MECHANIC [address] [place] [address] PCP - GeneralNurse Practitioner12/22/24
--- OUTSIDE RECORDS SUMMARY | 2025-04-23 09:39 | XMS_ITS | Encounter Summary ---
Author Organization [facility] Address [facility] [id number] [address] [place] [address] Care Team Providers Care Lead Software Tester Name Role Phone Delilah Savage FURNACE LOADER-[facility] Primary Care Provider + Encounter Details DateTypeDepartmentCare Team (Latest Contact Info)Jqjjrvnsswq44/11/2025Results Follow-Up [facility] [address] [facility] [address] [place] [address] Madisyn Zapata, FURNACE LOADER-SENIOR ACCOUNTING MANAGER [address] [place] [address] MR lumbar spine without contrast Social History Tobacco UseTypesPacks/DayYears UsedDateSmoking Tobacco: NeverSmokeless Tobacco: NeverAlcohol UseStandard Drinks/WeekCommentsNot Currently0 (1 standard drink = 0.6 oz pure alcohol)ChildcareAnswerDate RngvheiuMesorsrtaBifdtid27/08/2021 EmploymentAnswerDate GkeucpzrQhddbiwgybQghoajk40/08/2021Hunger ScreeningAnswer Date RecordedWithin the past 12 months we worried whether our food would run out before we got money to buy more.Never True01/04/2025Within the past 12 months the food we bought just didn't last and we didn't have money to get more.Never True01/04/2025Purpose - LifeAnswerDate RecordedPurpose and direction in life Zeqxspb1506/11/2020ex and Gender InformationValueDate RecordedSex Assigned at BirthNot on fileLegal OctDvhr9906/07/2020 8:50 PM ESTGender IdentityNot on file Sexual OrientationNot on filedocumented as of this encounter Plan of Treatment Not on file documented as of this encounter Visit Diagnoses Not on filedocumented in this encounter Additional Health Concerns AssessmentNoted TimeA Body Mass Index follow-up plan has been documented for the muhmfor4001/04/2025 5:01 PM EDTdocumented as of this encounter Care Teams Team MemberRelationshipSpecialtyStart DateEnd Date Delilah Savage APRN-NESS [address] [phone] PCP - GeneralNurse Practitioner12/22/24documented as of this encounter
--- OUTSIDE RECORDS SUMMARY | 2025-04-23 09:39 | XMS_ITS | Clinical Summary ---
Author Organization [facility] Address [address], [address] [place] [address] Care Team Providers Care Product Safety Expert Name Role Phone Sagrario Delvalle PRODUCT DEMONSTRATOR - TRUCK WASHER Primary Care Provider [phone] Allergies No known active allergies Medications MedicationSigDispense QuantityRefillsLast FilledStart DateEnd DateStatus amLODIPine (NORVASC) 5 MG tablet Take 1 tablet by mouth daily5Active ibuprofen (ADVIL;MOTRIN) 600 MG tablet TAKE 1 TABLET BY MOUTH THREE TIMES DAILY WITH FOOD OR MILK LEIXAS1811/03/2024 Active losartan (COZAAR) 100 MG tablet Take 1 tablet by mouth daily5Active [place]-3 Fatty Acids (FISH OIL) 1000 MG capsule Take by mouth daily5Active tiZANidine (ZANAFLEX) 4 MG tablet Take 1 tablet by mouth 3 times daily as xdbqyf115Active Active Problems No known active problems Social History Tobacco UseTypesPacks/DayYears UsedDateSmoking Tobacco: Unknown Tobacco Cessation:Counseling Given: Not Answered Alcohol UseStandard Drinks/WeekCommentsNever0 (1 standard drink = 0.6 oz pure alcohol)Sex and Gender InformationValueDate RecordedSex Assigned at BirthNot on fileLegal PesIdkb3609/26/2024 3:57 PM EDTGender IdentityNot on fileSexual OrientationNot on file Last Filed Vital Signs Vital SignReadingTime TakenCommentsBlood Iiwbtbdv670/9711/16/2024 1:35 PM EDT Mnbhc960611/16/2024 1:35 PM EDTTemperature--Respiratory Rate--Oxygen Saturation-- Inhaled Oxygen Concentration--Frgtvr32.8 kg (187 lb)11/16/2024 1:35 PM EDTHeight --Body Mass Index-- Plan of Treatment Health MaintenanceDue DateLast DoneCommentsDepression Vxyhkg7609/05/1981HIV screen 1984Hepatitis C byqpvi4609/06/1987DTaP/Tdap/Td vaccine (1 - Tdap)1988 Hepatitis B vaccine (1 of 3 - 19+ 3-dose series)09/05/19882259Jnhewg72/08/2010 Azjwkmexugo06/08/2015Colorectal Cancer Cnnoiq8509/05/2014FIT/FOBT: Average risk 2014Fecal-DNA (Cologuard): Average risk2014Sigmoidoscopy/CT airiaxmizsnx68/08/2015Pneumococcal 50+ years Vaccine (1 of 1 - PCV)09/06/2019 Shingles vaccine (1 of 2)09/06/2019Flu vaccine (#1)5COVID-19 Vaccine (1 - season)2025Hepatitis A vaccineAged OutNo longer eligible based on patient's age to complete this topicHib vaccineAged OutNo longer eligible based on patient's age to complete this topicMeningococcal (ACWY) vaccineAged OutNo longer eligible based on patient's age to complete this topicMeningococcal B vaccineAged OutNo longer eligible based on patient's age to complete this topicPolio vaccineAged OutNo longer eligible based on patient's age to complete this topic Insurance Care Teams Team MemberRelationshipSpecialtyStart DateEnd Date Sagrario Delvalle, BRIA - MARCOS [address] [place] [address] PCP - GeneralNurse Practitioner09/26/24
--- OUTSIDE RECORDS SUMMARY | 2025-04-23 09:40 | XMS_ITS | Clinical Summary ---
Author Organization [facility] Address [address] [place] [address] Care Team Providers Care Insurance Healthcare Consultant Name Role Phone Unallocated, [place] Provider Primary Care Provi w[place] Allergies No known active allergies Medications MedicationSigDispense QuantityRefillsLast FilledStart DateEnd DateStatus losartan (Cozaar) 100 MG tablet Take 100 mg by mouth 1 (one) time each day at the same time02/15/2023ctive tiZANidine (Zanaflex) 4 MG tablet Take 4 mg by mouth 3 (three) times a day as davfal3503/17/2023ctive omega-3 (fish oil) 1000 MG capsule Take 1 capsule by mouth 1 (one) time each day at the same time03/23/2023ctive Active Problems ProblemNoted DateDiagnosed DateSensorineural hearing loss (SNHL), bilateral 06/09/2023Left ear impacted zyvxrax2806/09/20234002Ajhrgqypklki72/08/2024GERD (gastroesophageal reflux disease)06/07/2023SNHL (sensorineural hearing loss) 06/07/2023isorder of pznsjr5910/01/2021Lumbar dzypktkb01/04/2022Lumbar tlnzypdwlfz65/04/2022 Family History Medical HistoryRelationNameCommentsHypertensionFatherStrokeFatherHypertension MotherStrokeMotherRelationNameStatusCommentsFatherMother Social History Tobacco UseTypesPacks/DayYears UsedDateSmoking Tobacco: NeverSmokeless Tobacco: Never Tobacco Cessation:Counseling Given: Not Answered Alcohol UseStandard Drinks/WeekCommentsNot Currently0 (1 standard drink = 0.6 oz pure alcohol)Sex and Gender InformationValueDate RecordedSex Assigned at Not on fileLegal WdrMkkm53/25/2023 8:56 AM EDTGender IdentityNot on fileSexual OrientationNot on file Last Filed Vital Signs Vital SignReadingTime TakenCommentsBlood Yvqleeuu977/9107 1:32 PM EDT Pulse--Temperature--Respiratory Rate--Oxygen Saturation--Inhaled Oxygen Concentration--Jmmbfj18.5 kg (184 lb)12/15/2023 1:32 PM BBZYipzjo683.1 cm (5' 5 )12/15/2023 1:32 PM EDTBody Mass Index30.62012/15/2023 1:32 PM EDT Plan of Treatment Health MaintenanceDue DateLast DoneCommentsCT Lcxrcdyozatt49/08/1970Colonoscopy 1969Colorectal Cancer Gqcezhvpw98/08/1970FIT-DNA1969FIT1969 FOBT1969 0270Nwnuefxyucsdm70/08/1970COVID-19 Vaccine (2024- season) 2025Influenza Vaccine (#1)2025Pneumococcal Vaccine: Pediatrics (0 to 5 Years) and At-Risk Patients (6 to 64 Years)Aged OutNo longer eligible based on patient's age to complete this topic Insurance Care Teams Team MemberRelationshipSpecialtyStart DateEnd Date Unallocated, [place] Terri, [address] [place] [address] PCP - Tkfiadx14/25/23
--- OUTSIDE RECORDS SUMMARY | 2025-04-23 09:41 | XMS_ITS | Patient Health Record ---
Author Organization [facility] vices Address [address] [place], [place] [id number] Care Team Providers Care Life Management Teacher Name Role Phone Delilah Savage Primary Care Provider [phone] Nusrat Hallman Unavailable [phone] Sagrario Delvalle Unavailable [phone] Regina Villalta Unavailable [phone] Dolly, Lana Unavailable [phone] Allergies No Known Allergies Results Component Value Reference Range Notes DRUGS OF ABUSE 8+ PANEL URIN E - SCREEN REFLEX TO CONFIRMATION Reviewed date:02/18/2025 10:11:35 PM Interpretation: Performing Lab: Notes/Report: CLIA NUMBER [id number] CAP ACCREDITATION AUID [id number] SLATE CUTTER: KAYLIE AKERS M.D. [facility] [employer] [address] [place] [address] UNLESS OTHERWISE INDICATED, ALL TESTING PERFORMED AT: OXIDANT <=200 mg/L CREATININE, URINARY >=20 mg/dL PHENCYCLIDINE 25 ng/mL OXYCODONE 100 ng/mL OPIATES 300 ng/mL METHAQUALONE 300 ng/mL METHADONE 300 ng/mL THC(MARIJUANA) 20 ng/mL COCAINE 150 ng/mL BENZODIAZEPINES 100 ng/mL BARBITURATES 200 ng/mL AMPHETAMINES 300 ng/mL ETHYL ALCOHOL 20 mg/dL Cutoffs for Drug Screen Testing: ETHANOL SCREEN, CLINICAL NEGATIVE AMPHETAMINESNEGATIVEBARBITURATESNEGATIVEBENZODIAZEPINENEGATIVECOCAINENEGATIVETHC (CANNABIS)NEGATIVEMETHADONENEGATIVEOPIATESNEGATIVEPHENCYCLIDINENEGATIVEOXYCODONE NEGATIVECREATININE,HWCOSSM189.8LKPPRNU34 Reason For Referral Reason eval and treat Diagnosis 1 Chronic back pain (M 54.9) Referral Organization Main Referring Provider First Name Sagrario Referring Provider Last Name Mook Referring Provider Speciality Nurse Prac billy Referred Provider Aroldo Bone Pain Andrei matthews Referred Provider Specialty Pain Managem ent General Notes Kadie Jackson 04/2025 12:51:07 PM >{ {TOFIRSTNAME}} This is [facility] following up on [...] Date End Date Status Erythromycin 5 MG/GM Ointment 1 applicat ion into the lower eyelid of affected eye Ophthalmic 4 times a day; Duration: 3 days 5ActiveamLODIPine Besylate 5 MG Tablet1 tablet Orally Once a day 5ActiveLosartan Potassium 100 MG TabletTAKE 1 TABLET BY MOUTH DAILY ActivetraMADol HCl 50 MG Tablet1 tablet as needed Orally twice dailyOARRS REVIEWED, OK TO FILL5ActiveIbuprofen 600 MG Tablet1 tablet with food or milk as needed Orally Three times a day; Duration: 90 days5Active Tpqvn-8-bfvk Ethyl Esters 1 GM CapsuleTAKE 1 CAPSULE BY MOUTH ONCE DAILY; Duration: 90ActivetiZANidine HCl 4 MG Tablet1 tablet as needed Orally Three times a day2Active Social History Tobacco Use: Social History Observation Description Date Details (start date - stop date) Never Smoker NA - NA Sex Assigned At : Social History Observation Description Sex Assigned At Male Social History Social DeterminantsSocial InfoQuestionAnswerNotesPRAPAREDate Completed/Updated: 09/25/2024patient entered dataWhat is your current housing situation?I have housingpatient entered dataAre you worried about losing your housing?No patient entered dataWhat is the highest level of school that you have finished?High school diploma or GEDpatient entered dataWhat is your current work situation?Otherwise unemployed but not seeking work (ex. 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 Check all that applyOther (please write in notes)Has lack of transportation kept you from medical appointments, meetings, work or from getting things needed for daily living?NoHow often do you see or talk to people that you care about and feel close to? (For example: talkingto friends on the phone, visiting friends or family, going to worship or club meetings)1 or 2 times a weekpatient entered dataHow stressed are you? Stress is when someone feels tense, nervous, anxious, or can't sleep at nightbecause their mind is troubledA little bitpatient entered dataIn the past year have you spent more than 2 nights in a row in a retirement, mcc, skilled nursing center, or juvenile correctional facility?Nopatient entered dataAre you a refugee?No patient entered dataWhat country are you from?[place] Statespatient entered dataDo you feel physically and emotionally safe where you currently live?Yes patient entered dataIn the past year, have you been afraid of your partner or ex-partner?I have not had a partner in the past yearpatient entered data PRAPARE Score:7Sexual History:Social InfoQuestionAnswerNotesFamily PlanningAre you or your partner planning on becoming in the next year if not already ?No? What type of contraception are you using?Choose not to disclosePCMH and UDS DemographicsSocial InfoQuestionAnswerNotesPrimar Care Medical [facility] QuestionsDo you have any barriers to learning?Nonepatient entered dataWhat is your preferred method of learning?Doing or practicing patient entered dataHow often do you need to have someone help you read instructions?Neverpatient entered dataDrugs/Alcohol/Caffeine:Social Info QuestionAnswerNotesDrugsHave you used drugs other than those for medical reasons in the past 12 months?NoCAGE-AID Questionnaire (2018 Edition)Have you ever felt that you ought to cut down on your drinking or drug use?Nopatient entered dataHave people annoyed you by criticizing your drinking or drug use?No patient entered dataHave you ever felt bad or guilty about your drinking or drug use?Nopatient entered dataHave you ever had a drink or used drugs first thing in the morning to steady your nerves or to get rid of a hangover?No patient entered dataCAGE-AID Yyhve5JscpgiswmaxjsuTocqdvrtHsemuvpeUgxsia:1-2 cups per dayTobacco Use:Social InfoQuestionAnswerNotesTobacco Control (Standard) Tobacco use:NonsmokerAdditional DetailsCategorySocial InfoOptionsDetails Miscellaneous:Occupation:unable to workCulture/Language BarrierNoEducation Level Grade 7-12Barriers to LearningHard of hearingLearning PreferenceDoing or practicingHow often do you need to have someone help you read instructionsNever SafetyPatient feels safe in relationshipsYesDrugs/Alcohol/Caffeine:Do you drink alcohol?NoSection Notes: Nutrition counseling focusin g on a low sodium and low sugar diet discussed with the patient, as well as appropriate weekly exercise and increased activity as tolerated to work towards a more optimal body mass index for improved overall health. Problems Problem Type SNOMED Code ICD Code Onset Dates Problem Status W/U Status Risk Notes Problem Mixed hyperlipidemia (756791228) Mixed hy perlipidemia (E78.2) ActiveconfirmedProblemEssential hypertension (07525097)Essential hypertension (I10)ActiveconfirmedProblemLate effect of injury (13641528)Blunt eye trauma, left, sequela (S05.92XS)ActiveconfirmedProblemLumbar radiculopathy (551259876) Lumbar radiculopathy (M54.16)Activeconfirmed Vital Signs Heart Rate 84 /min 03/19/2025 Gurrola, Ser vando 03/19/2025 01:26:45 PM EDT > Temperature 98.0 degrees Fahrenheit 03/19/2025 Vald ovsissy, Gerardo 03/19/2025 01:26:45 PM EDT > Respiratory Rate 17 /min 03/19/2025 Gurrola, Gerardo 03/19/2025 01:26:45 PM EDT > Oximetry 97 % 03/19/2025 Gurrola, Ser vando 03/19/2025 01:26:45 PM EDT > Blood pressure diastolic 80 mm Hg 03/19/2025 Yudelka dovinos, Gerardo 03/19/2025 01:26:45 PM EDT > Weight-kg 85.73 kg 03/19/2025 Gurrola, Ser vando 03/19/2025 01:26:45 PM EDT > Height 65 in 03/19/2025 Gurrola, Ser vando 03/19/2025 01:26:45 PM EDT > Blood pressure systolic 133 mm Hg 03/19/2025 Vald ovsissy, Gerardo 03/19/2025 01:26:45 PM EDT > Weight 189 lbs 03/19/2025 Gurrola, Ser vando 03/19/2025 01:26:45 PM EDT > BMI 31.45 kg/m2 03/19/2025 Gurrola, Ser vando 03/19/2025 01:26:45 PM EDT > Encounters Encounter Location Date Provider Diagnosis Main [address] [place], [place] [id number] 05/03/2024 Delilah Savage Pre-diabetes R73.0 3 ; Essential hypertension I10 ; Obesity (BMI 30-39.9) E66.9 and BMI 30.0-30.9,adult Z68.[address] [place] [id number] 09/25/2024 Sagrario Mook Chronic back pain M54.9 and Lumbar radiculopathy M54.16 Main [address] [place], [place] [id number] 11/07/2024 [facility] Essential hyperten arianna I10 ; Obesity, Class I, BMI 30-34.9 E66.811 and BMI 30.0-30.9,adult Z68.30 Dental Main [address] [place], [place] [id number] 11/10/2024 Nusrat Hallman Encounter for dent al examination and cleaning with abnormal findings Z01.21 ; Encounter for screening for dental disorders Z13.84 ; Dietary counseling Z71.3 ; Exercise counseling Z71.82 ; BMI 30.0-30.9,adult Z68.30 ; Dental caries into dentine K02.62 and Necrosis of pulp K04.1 [address] [place], [place] [id number] 11/21/2024 [facility] Essential hyperten arianna I10 ; Lumbar radiculopathy M54.16 ; BMI 30.0-30.9,adult Z68.30 and Obesity, Class I, BMI 30-34.9 E66.811 [facility] [address] [place] [phone] 12/06/2024 Lana Dolly Left eye injury, ini tial encounter S05.92XA Main [address] [place], [place] [id number] 02/15/2025 [facility] Lumbar radiculopat hy M54.16 ; Essential hypertension I10 ; Mixed hyperlipidemia E78.2 ; BMI 31.0-31.9,adult Z68.31 ; Obesity, Class I, BMI 30-34.9 E66.811 and High risk medication use Z79.899 Dental Main [address] [place], [place] [id number] 03/05/2025 Nusrat Hallman Dental caries into dentine K02.62 Main [address] [place], [place] [id number] [facility] Lumbar radiculopat [facility] M54.16 ; Essential hypertension I10 ; BMI 31.0-31.9,adult Z68.31 and Obesity, Class I, BMI 30-34.9 E66.811 Main [address] [place], [place] [id number] [facility]/05[facility] Chronic low back p ain M54.50 and Medication refill Z76.[address], [place] [id number] 10/10/2024 Sagrario Mook Medication refill Z76.0 Main [address] [place], [place] [id number] 12/21/2024 Lana Dolly Chronic back pain M54.9 Main [address] [place], [place] [id number] 02/01/2025 [facility] Essential hyperten arianna I10 Main [address] [place], [place] [id number] 02/18/[facility] Lumbar radiculopat hy M54.16 Main [address] [place], [place] [id number] [facility] M54.16 Main [address] [place], [place] [id number] [facility] Lumbar radiculopat hy M54.16 Assessments Encounter Date Diagnosis (ICD Code) Assessment Notes Treatment Notes Treatment Clinical Notes Section Notes 05/03/2024 Essential hypertension (ICD-10 - I10) HTN stable. Will continue current medications. Encouraged healthy diet and exercise. F/u 6 months & PRN Pt has not had labs since 02/2023, pt declines labs re-checked at this time 05/03/2024re-diabetes (ICD-10 - R73.03) Pt declined A1C at this visit. Pt reports his diet is a lot washroom cleaner and he watches what he eats more. Pt agreeable to add HgA1C on his labs next time they are drawn, rather than a finger poke. 5Chronic low back pain (ICD-10 - M54.50)09/25/2024Lumbar [...] decline labs F/U 1 month or PRN 11/10/2024Encounter for dental examination and cleaning with abnormal findings (ICD-10 - Z01.21)11/21/2024Essential hypertension (ICD-10 - I10)HTN stable. Will continue current medications. Encouraged healthy diet and exercise. F/u 3 months & PRN11/21/2024Lumbar radiculopathy (ICD-10 - M54.16) Referral sent for Dermatology Physician Assistant at this time, as pt no longer would like to see Pain Management Kevynruel Kendrick Pt does not wish to go [...] at the emergency room or see an senior communications specialist promptly. 12/21/2024hronic back pain (ICD-10 - M54.9)02/01/2025Essential hypertension (ICD-10 - I10)11/07/2024Obesity, Class I, BMI 30-34.9 (ICD-10 - E66.811) 02/15/2025Essential hypertension (ICD-10 - I10) HTN stable. Will [...] of this change, as he follows w/ [facility] now. Pt does not have an active [...] no irregularities F/U 3 months & PRN 5BMI 31.0-31.9,adult (ICD-10 - Z68.31)02/15/2025Mixed hyperlipidemia (ICD-10 - E78.2) Encouraged healthy diet and exercise Pt declines labs 5BMI 30.0-30.9,adult (ICD-10 - Z68.30)11/10/2024Encounter for screening for dental disorders (ICD-10 - Z13.84)11/07/2024MI 30.0-30.9,adult (ICD-10 - Z68.30)06/05/2024Medication refill (ICD-10 - Z76.0)05/03/2024Obesity (BMI 30- 39.9) (ICD-10 - E66.9)05/03/2024MI 30.0-30.9,adult (ICD-10 - Z68.30)11/21/2024 Obesity, Class I, BMI 30-34.9 (ICD-10 - E66.811)03/19/2025Obesity, Class I, BMI 30-34.9 (ICD-10 - E66.811)02/15/2025MI 31.0-31.9,adult (ICD-10 - Z68.31) 11/10/2024Dietary counseling (ICD-10 - Z71.3)02/15/2025Obesity, Class I, BMI 30- 34.9 (ICD-10 - E66.811)11/10/2024Exercise counseling (ICD-10 - Z71.82)11/10/2024 BMI 30.0-30.9,adult (ICD-10 - Z68.30)02/15/2025High risk medication use (ICD-10 - Z79.899)11/10/2024Dental caries into dentine (ICD-10 - K02.62)11/10/2024 Necrosis of pulp (ICD-10 - K04.1) Plan Of Treatment Next Appt Details Provider Name:Nusrat Hallman , 05/28/2025 12:45:00 PM, [address] [place] [address], [phone], Provider Name:Nusrat Hallman , 06/19/2025 03:15:00 PM, [address] [place] [address], [phone], Provider Name:Delilah Savage , 06/20/2025 01:15:00 PM, [address] [place] [address], [phone], Insurance Providers Payer Name Payer Address Payer Phone Subscriber Number Group Number Insured Name Patient Relationship to Insured Coverage Start Date Coverage End Date [employer] ABD [employer] [address] [place], [place] [id number] HallieBenjaminOzzyaurora - patient is the [id number] 2022[employer] Dentaquest MCD[address] [place] [id number] [place] - patient is the [id number] 2022Medicaid ABD after [address] [place], [place] [id number] [place] - patient is the [id number] 2022 DMedicaid ABD after CaresourceDentaquest[address] [place], [place] [id number]aaurora - patient is the [id number] 2022 Medical (General) History Medical History History [...]
[2025-04-23 10:24] VITALS: BP 133/85; PULSE 70; TEMP 37.5; O2SAT 97
[2025-04-23 11:13] VITALS: BP 136/87; PULSE 66; PULSE 68; O2SAT 98
[2025-04-23 11:14] VITALS: BP 135/88
[2025-04-23] MEDS: 0.9 % SODIUM CHLORIDE 10 ML SYRINGE - SALINE FLUSH INJ (11:16)
[2025-04-23] MEDS: DEXAMETHASONE SOD PHOS 10 MG/ML VIAL INJ (11:17)
[2025-04-23] MEDS: BUPIVACAINE HCL 0.25% PF 25 MG/10 ML VIAL INJ (11:17)
[2025-04-23] MEDS: IOHEXOL 240 MG/ML - 10 ML VIAL INJ (11:17)
[2025-04-23] MEDS: LIDOCAINE HCL 2% 400 MG/20 ML MDV 5 ML INJ (11:18)
--- NOTE | 2025-04-23 11:27 | P.ON_ITS ---
Date of procedure: 04/23/25 Pre-op diagnosis: Pain due to lumbar stenosis with neurogenic claudication Post-op diagnosis: same as pre-op Procedure: Procedure: Left L4-5, L5-S1 transforaminal epidural steroid injection Medications: Bupivacaine 0.25% 2cc, lidocaine 2% 1cc, depomedrol 80mg The patient was seen and examined in the preoperative holding area.? Informed consent was obtained and placed on the chart.? Patient was brought to the medical procedure unit and placed in the prone position where a timeout was completed verifying the correct patient, procedure site, position, and planned special equipment using sterile aseptic technique.? Under direct fluoroscopic visualization a 25-gauge Quincke tipped spinal needle was advanced to the designated neural foramen where contrast dye was injected to show adequate spread.? The needle was inserted at level left L4-5. There was no evidence of vascular or adverse uptake.? Epidural spread was appreciated.? The above- mentioned injectate was then placed in a 1.5 mL aliquot preceded by negative aspiration.? The needle was removed. The needle was inserted and the procedure repeated at level left L5-S1.? The surgery site was covered.? Patient was taken to the postprocedural recovery area and monitored for an appropriate length of time before found suitable for discharge in the accompaniment of a responsible adult. Anesthesia: Local Surgeon: David Flynn Pathology: none sent Condition: stable Disposition: no change
== END 2025-04-23 11:24 | disposition home or self-care (01) ==
PROVIDERS: Visit Provider Anesthesiology
DX: M48.062 Spinal stenosis, lumbar region with neurogenic claudication (principal); M54.50 Low back pain, unspecified; G89.29 Other chronic pain
CPT/HCPCS: 64483; 64484; J0665; J1100; Q9966

== ENCOUNTER 2025-05-02 13:32 | Outpatient (OUT) | payer OTHER, SELFPAY ==
--- OUTSIDE RECORDS SUMMARY | 2024-11-14 10:15 | XMS_ITS ---
Author Organization [facility] vices Address [address] [place], [place] [address] Care Team Providers Care Group Program Manager Name Role Phone Delilah Savage Primary Care Provider [phone] Regina Villalta Unavailable [phone] REASON FOR VISIT Recall (A)(54) Social History Sex Assigned At : Social History Observation Description Sex Assigned At Male Encounters Encounter Location Date Provider Diagnosis Dental Main [address] [place], [place] [phone] 11/14/2024 Regina Villalta Plan Of Treatment Next Appt Details Provider Name:Nusrat Hallman , 05/28/2025 12:45:00 PM, [address] [place] [address], [phone], Provider Name:Nusrat Hallman , 06/19/2025 03:15:00 PM, [address] [place] [address], [phone], Provider Name:Delilah Savage , 06/20/2025 01:15:00 PM, [address] [place] [address], [phone], Progress Notes * Janell VEGADOB:1970 (54 yo M)Acc No.[id number]:11/14/2024 Patient:?Janell Vega :?Regina Villalta DDSDOB:1970???Age:54 Y ???Sex:MaleDate:11/14/2024Phone:[phone]:[address], [place], [id number]:Delilah Savage Subjective: * Chief Complaints: * R arianna (A)(54) * Electronic signature of Regina Villalta DDS on 05/02/2025 at 01:35 PM EST Sign off status: Pending * Provider: Matt Villalta DDS Date: 0 11/14/2024 Generated for Printing/Faxing/eTransmitting on:?05/02/2025 01:35 PM EST
--- OUTSIDE RECORDS SUMMARY | 2024-12-05 09:00 | XMS_ITS ---
Author Organization [facility] vices Address [address] [facility] [facility] [phone] Care Team Providers Care Oracle Applications Developer Name Role Phone Delilah Savage Primary Care Provider [phone] REASON FOR VISIT 1 mo HTN Social History Sex Assigned At : Social History Observation Description Sex Assigned At Male Encounters Encounter Location Date Provider Diagnosis Main [address] [place], [place] [phone] 12/05/2024 Delilah Savage Plan Of Treatment Next Appt Details Provider Name:Nusrat Hallman , 05/28/2025 12:45:00 PM, [address] [place] [address], [phone], Provider Name:Nusrat Hallman , 06/19/2025 03:15:00 PM, [address] [place] [address], [id number], Provider Name:Delilah Savage , 06/20/2025 01:15:00 PM, [facility] [address] [place], [phone], Progress Notes * Janell VEGADOB:1970 (54 yo M)Acc No.[id number]:12/05/2024 Medical Note Patient: Janell Vasquez :?Delilah SavageDOB:1970???Age:54 Y???Sex: MaleDate:12/05/2024Phone:[phone]:[address] [id number] Subjective: * Chief Complaints: * 1 mo HTN Billing Information: * Procedure Codes: * Electronic signature of ELVIA Madera on 05/02/2025 at 01:35 PM ESTSign off status: Pending * Provider: Neto Savage Date: 0 12/05/2024 Generated for Printing/Faxing/eTransmitting on:?05/02/2025 01:35 PM EST
--- OUTSIDE RECORDS SUMMARY | 2025-02-22 10:30 | XMS_ITS ---
Author Organization [facility] vices Address [address] [place], [place] [address] Care Team Providers Care Tape Recorder Repairer Name Role Phone Hussein Delilah Primary Care Provider REASON FOR VISIT 3 month HTN, Back pain Social History Sex Assigned At : Social History Observation Description Sex Assigned At Male Encounters Encounter Location Date Provider Diagnosis Main [address] [place], [place] [phone] 02/22/2025 Delilah Savage Plan Of Treatment Next Appt Details Provider Name:Nusrat Hallman , 05/28/2025 12:45:00 PM, [address] [place] [address], [phone], Provider Name:Nusrat Hallman , 06/19/2025 03:15:00 PM, [address] [place] [address], [phone], Provider Name:Delilah Savage , 06/20/2025 01:15:00 PM, [facility] [address], [phone], Progress Notes * Janell VEGADOB:1970 (54 yo M)Acc No.[id number]:02/22/2025 Medical Note Patient: Janell Vasquez :?Delilah SavageDOB:1970???Age:54 Y???Sex: MaleDate:02/22/2025Phone:[phone]:[address] [place], [id number] Subjective: * Chief Complaints: * 3 month HTN, Back pain * Electronic signature of ELVIA Madera on 05/02/2025 at 01:36 PM ESTSign off status: Pending * Provider: Neto Savage Date: 0 02/22/2025 Generated for Printing/Faxing/eTransmitting on:?05/02/2025 01:36 PM EST
--- OUTSIDE RECORDS SUMMARY | 2025-04-11 09:30 | XMS_ITS ---
Author Organization [facility] vices Address [address] [place], [place] [id number] Care Team Providers Care Juice Scaleman Name Role Phone Delilah Savage Primary Care Provider [phone] Nusrat Hallman Unavailable [phone] REASON FOR VISIT Rest #30-B, #31-B [place] Social History Sex Assigned At : Social History Observation Description Sex Assigned At Male Encounters Encounter Location Date Provider Diagnosis [facility] [address] [place] [phone] 04/11/2025 Nusrat Hallman Plan Of Treatment Next Appt Details Provider Name:Nusrat Hallman , 05/28/2025 12:45:00 PM, [address] [place] [address], [id number], Provider Name:Nusrat Hallman , 06/19/2025 03:15:00 PM, [address] [place] [address], [id number], Provider Name:Delilah Savage , 06/20/2025 01:15:00 PM, [address] [place] [address], [id number], Progress Notes * Janell VEGADOB:1970 (54 yo M)Acc No.[id number]:04/11/2025 Patient:?Janell Vega :?Nusrat Hallman DDSDOB:1970???Age:54 Y ???Sex:MaleDate:04/11/2025Phone:[phone]:[address] , [place], [id number]:Delilah Savage Subjective: * Chief Complaints: * R est #30-B, #31-B [place] Billing Information: * Procedure Codes: * Electronic signature of Nusrat Hallman DDS on 05/02/2025 at 01:35 PM ESTSign off status: Pending * Provider: Tony Hallman DDS Date: 06/11/2024 Generated for Printing/Faxing/eTransmitting on:?05/02/2025 01:35 PM EST
--- OUTSIDE RECORDS SUMMARY | 2025-05-02 13:35 | XMS_ITS | Clinical Summary ---
Author Organization [facility] Healthcare Address [address] [place] [address] Care Team Providers Care Student Assistance Counselor Name Role Phone Unallocated, Nomdenny Provider Primary Care Provi wilton Allergies No known active allergies Medications MedicationSigDispense QuantityRefillsLast FilledStart DateEnd DateStatus losartan (Cozaar) 100 MG tablet Take 100 mg by mouth 1 (one) time each day at the same time02/15/2023ctive tiZANidine (Zanaflex) 4 MG tablet Take 4 mg by mouth 3 (three) times a day as uljweu2503/17/2023ctive omega-3 (fish oil) 1000 MG capsule Take 1 capsule by mouth 1 (one) time each day at the same time03/23/2023ctive Active Problems ProblemNoted DateDiagnosed DateSensorineural hearing loss (SNHL), bilateral 06/09/2023Left ear impacted lhujgsp0106/09/20232382Txmorvzynmwh13/08/2024GERD (gastroesophageal reflux disease)06/07/2023SNHL (sensorineural hearing loss) 06/07/2023isorder of yvuuxr7310/01/2021Lumbar kjmmeojc16/04/2022Lumbar wgtecqphofc01/04/2022 Family History Medical HistoryRelationNameCommentsHypertensionFatherStrokeFatherHypertension MotherStrokeMotherRelationNameStatusCommentsFatherMother Social History Tobacco UseTypesPacks/DayYears UsedDateSmoking Tobacco: NeverSmokeless Tobacco: Never Tobacco Cessation:Counseling Given: Not Answered Alcohol UseStandard Drinks/WeekCommentsNot Currently0 (1 standard drink = 0.6 oz pure alcohol)Sex and Gender InformationValueDate RecordedSex Assigned at Not on fileLegal ZpcTsnw86/25/2023 8:56 AM EDTGender IdentityNot on fileSexual OrientationNot on file Last Filed Vital Signs Vital SignReadingTime TakenCommentsBlood Rflmpbhk763/9107 1:32 PM EDT Pulse--Temperature--Respiratory Rate--Oxygen Saturation--Inhaled Oxygen Concentration--Xneeiy21.5 kg (184 lb)12/15/2023 1:32 PM ZNUHgjxmk449.1 cm (5' 5 )12/15/2023 1:32 PM EDTBody Mass Index30.62012/15/2023 1:32 PM EDT Plan of Treatment Health MaintenanceDue DateLast DoneCommentsCT Wetbtbcwhlnw75/08/1970Colonoscopy 1969Colorectal Cancer Dkxkwtwxv70/08/1970FIT-DNA1969FIT1969 FOBT1969 8054Pdoxvakasnape97/08/1970COVID-19 Vaccine (2024- season) 2025Influenza Vaccine (#1)2025Pneumococcal Vaccine: Pediatrics (0 to 5 Years) and At-Risk Patients (6 to 64 Years)Aged OutNo longer eligible based on patient's age to complete this topic Insurance Care Teams Team MemberRelationshipSpecialtyStart DateEnd Date Unallocated, N[place] Terri, [address] [place] [address] PCP - Lprcsev05/25/23
--- OUTSIDE RECORDS SUMMARY | 2025-05-02 13:35 | XMS_ITS | Clinical Summary ---
Author Organization [facility] Address [facility] [id number] [address] [place] [address] Care Team Providers Care Information Coder Name Role Phone Delilah Savage SERVICE LINE LAYER-CLINICAL EDUCATOR Primary Care Provider + Allergies No known [...] morning.5Active Active Problems ProblemNoted DateDiagnosed DateDisorder of jqqoqe7210/01/2021Lumbar neuritis 10/01/2021Lumbar xcdonmkvbtw60/04/2022 Encounters DateTypeDepartmentCare UozoHcvtfxrtpkn22/22/2025Telephone [facility] [address] [place] [address] Katelyn Solares CNA Pain Weomlxoqb60/12/2025Telephone [facility] [address] [place] [address] Tali Mahoney RMA 02/08/2025Results Follow-Up [facility] [address] [place] [address] Madisyn Zapata, SERVICE LINE LAYER-CLINICAL EDUCATOR MR lumbar spine without bwxdxyfq92/09/2025 4:25 PM EDT - 02/06/2025 11:59 PM EDT Hospital Encounter [facility] [address] [place] [address] Chronic bilateral low back pain with left-sided sciatica; Lumbar facet arthropathy; Lumbar disc disease Discharge Disposition: Home02/06/2025Travelfrom Last 3 Months Family History Medical HistoryRelationNameCommentsCancerFatherCancerMotherRelationNameStatus CommentsFatherDeceasedMotherDeceased Social History Tobacco UseTypesPacks/DayYears UsedDateSmoking Tobacco: NeverSmokeless Tobacco: Never Tobacco Cessation:Counseling Given: Not Answered Alcohol UseStandard Drinks/WeekCommentsNot Currently0 (1 standard drink = 0.6 oz pure alcohol)ChildcareAnswerDate OxxdpzbpOghzcclmvRpiuipg31/08/2021mployment AnswerDate JafvqmsoDzabytpzbyZzmrfcz58/08/2021Hunger ScreeningAnswerDate RecordedWithin the past 12 months we worried whether our food would run out before we got money to buy more.Never True01/04/2025Within the past 12 months the food we bought just didn't last and we didn't have money to get more.Never True01/04/2025Purpose - LifeAnswerDate RecordedPurpose and direction in life Kepwkvx5206/11/2020ex and Gender InformationValueDate RecordedSex Assigned at BirthNot on fileLegal MluSquy4306/07/2020 8:50 PM ESTGender IdentityNot on file Sexual OrientationNot on file Last Filed Vital Signs Vital SignReadingTime TakenCommentsBlood Wvdhfosw133/8601/04/2025 3:23 PM EDT Uecue0626 3:23 PM DNTLdwomhlkndg45.7 ??C (98 ??F)12/10/2021 11:26 AM EDT Respiratory Vpjl307412/10/2021 11:26 AM EDTOxygen Xxsznjjkmj96%12/10/2021 11:26 AM EDTInhaled Oxygen Concentration--Fcvvsy70.3 kg (188 lb)01/04/2025 3:23 PM EDT Hbwcse438.1 cm (5' 5 )01/04/2025 3:23 PM EDTBody Mass Index31.28001/04/2025 3:23 PM EDT Plan of Treatment Health MaintenanceDue DateLast DoneCommentsDepression Ecyxuzixo14/08/1982 DTaP,Tdap and Td Vaccines (1 - Tdap)1988Zoster (Shingles) Vaccine (1 of 2) 09/06/2019Influenza Luhjcfj9901/29/2025dult BMI Follow Up Plan01/04/2026 01/04/2025dult BMI Dybynqsjh46Tobacco Tgzlsutld31/07/2026 01/04/2025 Medical Devices Not on file Procedures Procedure NamePriorityDate/TimeAssociated DiagnosisCommentsMR LUMBAR SPINE WO LQMIUctdcpt18/09/2025 4:58 PM EDT Chronic bilateral low back [...] thecal sac stenosis. Moderate to severe left, byua-tl-zionmojy right, neural frontal stenosis. S1-S2: Near-complete disc [...] Moderate thecalsac stenosis. Moderate to severe left, qcub-pr-hohjccrv right, neural frontal stenosis. S1-S2: Near-complete disc space. Minimal thecal sac and neural foraminal stenosis. Left upper pole renal parenchymal volume loss. Impression: 1. Transitional lumbosacral anatomy, level reconciliation advised prior to intervention. Notable moderate to severe left L5-S1 neural foraminalstenosis, mass effect on exiting left L5 nerve, please correlate forassociated symptoms. Notable asymmetric crowding of left L5-D5ykfuhpggdwre zone, no bolivar nerve root impingement. 2. Additional notable degenerative changes at L4-5 with moderate thecalsac and bilateral neural frontal stenosis, right more so than left. Finalized by Rishabh Hernandez MD on 02/08/2025 12:53 PM Authorizing ProviderResult TypeResult StatusMadisyn Zapata SERVICE LINE LAYER-CNPIMG MRI ORDERABLESFinal Result from Last 3 Months Insurance Care Teams Team MemberRelationshipSpecialtyStart DateEnd Date Delilah Savage APRN-CLINICAL EDUCATOR [address] [place] [address] PCP - GeneralNurse Practitioner12/22/24
--- OUTSIDE RECORDS SUMMARY | 2025-05-02 13:37 | XMS_ITS | Patient Health Record ---
Author Organization [facility] Address [address] [place], [place] [id number] Care Team Providers Care Manager Special Events Name Role Phone Delilah Savage Primary Care Provider Nusrat Hallman Unavailable [phone] Sagrario Delvalle Unavailable [phone] Regina Villalta Unavailable [phone] Dolly, Lana Unavailable [phone] Allergies No Known Allergies Results Component Value Reference Range Notes DRUGS OF ABUSE 8+ PANEL URIN E - SCREEN REFLEX TO CONFIRMATION Reviewed date:02/18/2025 10:11:35 PM Interpretation: Performing Lab: Notes/Report: CLIA NUMBER [id number] CAP ACCREDITATION AUID [id number] TRANSFER CLERK: KAYLIE AKERS M.D. [facility] [employer] [address] [place] [address] UNLESS OTHERWISE INDICATED, ALL TESTING PERFORMED AT: OXIDANT <=200 mg/L CREATININE, URINARY >=20 mg/dL PHENCYCLIDINE 25 ng/mL OXYCODONE 100 ng/mL OPIATES 300 ng/mL METHAQUALONE 300 ng/mL METHADONE 300 ng/mL THC(MARIJUANA) 20 ng/mL COCAINE 150 ng/mL BENZODIAZEPINES 100 ng/mL BARBITURATES 200 ng/mL AMPHETAMINES 300 ng/mL ETHYL ALCOHOL 20 mg/dL Cutoffs for Drug Screen Testing: ETHANOL SCREEN, CLINICAL NEGATIVE AMPHETAMINESNEGATIVEBARBITURATESNEGATIVEBENZODIAZEPINENEGATIVECOCAINENEGATIVETHC (CANNABIS)NEGATIVEMETHADONENEGATIVEOPIATESNEGATIVEPHENCYCLIDINENEGATIVEOXYCODONE NEGATIVECREATININE,[id number] Reason For Referral Reason eval and treat Diagnosis 1 Chronic back pain (M 54.9) Referral Organization Main Referring Provider First Name Sagrario Referring Provider Last Name Mook Referring Provider Speciality Nurse Gabi cervantes Referred Provider Aroldo Bone Pain nAdrei matthews Referred Provider Specialty Pain Managem ent General Notes Kadie Jackson 04/2025 12:51:07 PM >{ {TOFIRSTNAME}} This is [facility] following up on an outstanding [...] MG Tablet1 tablet Orally Once a day 5ActivetraMADol HCl 50 MG Tablet1 tablet as needed Orally twice daily OARRS REVIEWED, [place] TO FILL5ActiveLosartan Potassium 100 MG TabletTAKE 1 TABLET BY MOUTH DAILY; Duration: 90ActiveIbuprofen 600 MG Tablet1 tablet with food or milk as needed Orally Three times a day; Duration: 90 days09/25/2024 TalzgjNooam-8-tqpu Ethyl Esters 1 GM CapsuleTAKE 1 CAPSULE BY MOUTH ONCE DAILY; Duration: 90ActivetiZANidine HCl 4 MG Tablet1 tablet as needed Orally Three times a day05/14/2022ctive Social History Tobacco Use: Social History Observation [...] 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 Stress is when someone feels tense, nervous, anxious, or can't sleep at nightbecause their mind is troubledA little bitpatient entered dataIn the past year have you spent more than 2 nights in a row in a fci, detention, fdc center, or juvenile correctional facility?Nopatient entered dataAre [...] using?Choose not to disclosePCMH and UDS DemographicsSocial InfoQuestionAnswerNotesPrimary Care Medical Home QuestionsDo you have any [...] rid of a hangover?No patient entered dataCAGE-AID Icbzq9NubymbmudfknqpAggyvjxoMtjymyzlWbwtii:1-2 cups per dayTobacco Use:Social InfoQuestionAnswerNotesTobacco Control (Standard) [...] W/U Status Risk Notes Problem Mixed hyperlipidemia (975786469) Mixed hy perlipidemia (E78.2) ActiveconfirmedProblemEssential hypertension (68478654)Essential hypertension (I10)ActiveconfirmedProblemLate effect of injury (20059686)Blunt eye trauma, left, sequela (S05.92XS)ActiveconfirmedProblemLumbar radiculopathy (255829069) Lumbar radiculopathy (M54.16)Activeconfirmed Vital Signs Heart Rate 84 /min 03/19/2025 Gurrola, Ser vando 03/19/2025 01:26:45 PM EDT > Temperature 98.0 degrees Fahrenheit 03/19/2025 Vald ovinos, Gerardo 03/19/2025 01:26:45 PM EDT > Respiratory Rate 17 /min 03/19/2025 Gurrola, Gerardo 03/19/2025 01:26:45 PM EDT > Blood pressure diastolic 80 mm Hg 03/19/2025 Yudelka dovinos, Gerardo 03/19/2025 01:26:45 PM EDT > Oximetry 97 % 03/19/2025 Gurrola, Ser vando 03/19/2025 01:26:45 PM EDT > Weight-kg 85.73 kg 03/19/2025 Gurrola, Ser vando 03/19/2025 01:26:45 PM EDT > Height 65 in 03/19/2025 Gurrola, Ser vando 03/19/2025 01:26:45 PM EDT > Blood pressure systolic 133 mm Hg 03/19/2025 Vald ovinos, Gerardo 03/19/2025 01:26:45 PM EDT > Weight 189 lbs 03/19/2025 Gurrola, Ser vando 03/19/2025 01:26:45 PM EDT > BMI 31.45 kg/m2 03/19/2025 Gurrola, Ser vando 03/19/2025 01:26:45 PM EDT > Encounters Encounter Location Date Provider Diagnosis Main [address] [place] [id number] 05/03/2024 Delilah Savage Pre-diabetes R73.0 3 ; Essential hypertension I10 ; Obesity (BMI 30-39.9) E66.9 and BMI 30.0-30.9,adult Z68.[address] [id number] 09/25/2024 Sagrario Mook Chronic back pain M54.9 and Lumbar radiculopathy M54.16 [address] [place], [place] [id number] 11/07/2024 Delilah [facility] Essential hyperten arianna I10 ; Obesity, Class I, BMI 30-34.9 E66.811 and BMI 30.0-30.9,adult Z68.30 Dental Main [address] [place], [place] [id number] 11/10/2024 Nusrat Hallman Encounter for dent al examination and cleaning with abnormal findings Z01.21 ; Encounter for screening for dental disorders Z13.84 ; Dietary counseling Z71.3 ; Exercise counseling Z71.82 ; BMI 30.0-30.9,adult Z68.30 ; Dental caries into dentine K02.62 and Necrosis of pulp K04.1 Main [address] [place], [place] [id number] [facility]ten arianna I10 ; Lumbar radiculopathy M54.16 ; BMI 30.0-30.9,adult Z68.30 and Obesity, Class I, BMI 30-34.9 E66.811 [facility] [address] [place] [id number] 12/06/2024 Lana Dolly Left eye injury, ini tial encounter S05.92XA Main [address] [place], [place] [id number] 02/[facility] Lumbar radiculopat hy M54.16 ; Essential hypertension I10 ; Mixed hyperlipidemia E78.2 ; BMI 31.0-31.9,adult Z68.31 ; Obesity, Class I, BMI 30-34.9 E66.811 and High risk medication use Z79.899 Dental Main [address] [place], [place] [id number] 03/05/2025 Nusrat Hallman Dental caries into dentine K02.62 [facility] [address] [facility] [place] [id number] [facility] Lumbar [facility]iculop[facility] M54.16 ; Essential hypertension I10 ; BMI 31.0-31.9,adult Z68.31 and Obesity, Class I, BMI 30-34.9 E66.811 Main [address] [place], [place] [id number] 06/05/2024 [facility] Chronic low back p ain M54.50 and Medication refill Z76.[address] [id number] 10/10/2024 Sagrario Mook Medication refill Z76.0 Main [address] [place], [place] [id number] 12/21/2024 Lana Dolly Chronic back pain M54.9 Main [address] [place], [place] [id number] 02/01/2025 [facility] Essential hyperten arianna I10 Main [address] [place], [place] [id number] 02/18/2025 [facility] Lumbar radiculopat hy M54.16 [facility] [address] [facility] [place] [place] [id number] 02/[facility]/20[facility] Lumbar radiculopat hy M54.16 Main [address] [place], [place] [id number] 03/12/20[facility] Lumbar radiculopat hy M54.16 Assessments Encounter Date [...] decline labs F/U 1 month or PRN 05/03/2024re-diabetes (ICD-10 - R73.03) Pt declined A1C at this visit. 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 5Chronic back pain (ICD-10 - M54.9)02/01/2025Essential hypertension (ICD-10 [...] of this change, as he follows w/ [facility] now. Pt does not have an active [...] for screening for dental disorders (ICD-10 - Z13.84)06/05/2024Medication refill (ICD-10 - Z76.0)11/07/2024MI 30.0-30.9,adult (ICD-10 - Z68.30)05/03/2024Obesity (BMI 30- 39.9) (ICD-10 - E66.9)05/03/2024MI 30.0-30.9,adult (ICD-10 - Z68.30)11/21/2024 Obesity, Class I, BMI 30-34.9 (ICD-10 - E66.811)02/15/2025MI 31.0-31.9,adult (ICD-10 - Z68.31)03/19/2025Obesity, Class I, BMI 30-34.9 (ICD-10 - E66.811) 11/10/2024Dietary counseling (ICD-10 - Z71.3)02/15/2025Obesity, Class I, BMI 30- 34.9 (ICD-10 - E66.811)11/10/2024Exercise counseling (ICD-10 - Z71.82)11/10/2024 BMI 30.0-30.9,adult (ICD-10 - Z68.30)02/15/2025High risk medication use (ICD-10 - Z79.899)11/10/2024Dental caries into dentine (ICD-10 - K02.62)11/10/2024 Necrosis of pulp (ICD-10 - K04.1) Plan Of Treatment Next Appt Details Provider Name:Nusrat Hallman , 05/28/2025 12:45:00 PM, [address] [place] [address], [phone], Provider Name:Nusrat Hallman , 06/19/2025 03:15:00 PM, [address] [place] [address], [phone], Provider Name:Delilah Savage , 06/20/2025 01:15:00 PM, [address] [place] [address], [phone], Insurance Providers Payer Name Payer Address Payer Phone Subscriber Number Group Number Insured Name Patient Relationship to Insured Coverage Start Date Coverage End Date [employer] [address] [place], [place] [id number] Darby Sterling - patient is the [id number] 2022[employer] Dentaquest MCDPO [address] [place] [phone], WespayalElian - patient is the [id number] 2022Medicaid ABD after [address] [place], [place] [id number], WesleySelf - patient is the [id number] 2022 DMedicaid ABD after CaresourceDentaquest[address] [place], [place] [phone] [id number], WesleySelf - patient is the [id number] 2022 Medical (General) History Medical History History [...]
--- NOTE | 2025-05-02 13:51 | PM.CN ---
Consult Note: HPI Data of Consult Patient: known to practice within the last 3 years Consult date: 05/02/25 Requesting Physician: Jennifer Pérez NP Primary Care Provider: Delilah Savage NP Consult Narrative Reason for consult: low back and LLE pain Narrative: Louie Sterling a pleasant 54 year old male presents for evaluation of low back, left SIJ, and LLE pain >12 months unresponsive to > 6 weeks of PT/HEP, heat, ice, tylenol, NSAIDs. recently met with NS, however pt is not interested in surgical intervention. pt initiated provider guided HEP from PCP july 2024 and attempted at least 15mins a day twice weekly greater than 6 weeks without improvement, continues to engage ongoing as tolerated. Pain 4/10 increasing to 7/10 at times, pain with all activities with temporary relief with position changes, squatting, sitting. notes numbness tingling to left leg and foot worsening over the last 6 months. has failed tizanidine, motrin, tylenol. pt did not start meloxicam due to concerns of HTN. Pt recently underwent left L4/5 L5/S1 TFESI #2 with mild to moderate relief ongoing per pt. cc:: CC: Jennifer Pérez NP Review of Systems ROS Musculoskeletal Reports: back pain and extremity pain Meds Home Medications and Allergies Home Medications ?Medication ?Instructions ?Recorded ?Confirmed ?Type amlodipine 5 mg tablet 5 mg PO DAILY 02/08/25 04/23/25 History losartan 100 mg tablet 100 mg PO DAILY 02/08/25 04/23/25 History omega-3 fatty acids 1,000 mg PO DAILY 02/08/25 04/23/25 History tramadol 50 mg tablet mg 03/19/25 History Allergies Allergy/AdvReac Type Severity Reaction Status Date / Time No Known Drug Allergies Allergy Verified 04/23/25 10:22 Exam Constitutional Documenting provider has reviewed patient's vital signs: yes Common normals: no apparent distress, oriented x3 and alert General appearance: cooperative HENMT Common normals: normocephalic, hearing grossly normal bilaterally and moist oral mucous membranes Head and scalp: normocephalic Eye Common normals: PERRL Pupil: PERRL Neck & C-Spine Common normals: full ROM General: normal visual inspection Chest Common normals: inspection of chest normal Respiratory Common normals: normal respiratory effort, no retractions and no use of accessory muscles Back & Pelvis Lumbar spine/lower back: pain with ROM, lumbar spinal tenderness and straight leg raise positive left Other: decreased sensation bilateral L4/5 left L5/S1 strength 4/5 in BLE Extremity Common normals: normal to inspection Neuro Common normals: oriented x3 Sensorium/orientation: alert Psych Common normals: mental status grossly normal, thought process normal, cooperative, affect normal, speech normal and activity/motor behavior normal Speech: normal speech Thought process: normal thought process Results Additional Findings Additional findings: If on a controlled substance or opioids, I have checked an OARRS report on this patient and there are no aberrancies noted in the prescribing history.??If on a controlled substance or opioid a drug screen was completed and reviewed within the last year, and if there has not been a drug screen completed we ordered one today to monitor higher risk, state monitored pain medication use. As part of providing excellent, safe, comprehensive care, the following was completed at our patient's visit: 1. A medication reconciliation and review to ensure accurate knowledge of current/active medications, including asking our patients to inform us about any daor-plh-zyyeurh medications or herbal remedies/nutritional supplements/alternative remedies. 2. A review to specifically ensure our patients have had annual screening for screening for depression, screening for tobacco use, and screening for unhealthy alcohol use. For concerning screenings had a discussion with the patient, provided patient education, and recommended follow-up with primary care provider when appropriate. If patient noted with a risk of falling, they received education on strength, gait, and balance training to prevent future risk of falling. Portions of this note may have been carried over from the previous visit and updated as appropriate. Please note this office utilizes paper charting in addition to the electronic medical record. A list of current medications, vitals, and PMH is available there as the clinical staff outside of myself do not have access to [employer] charting during the clinic day operations. As part of providing quality comprehensive care the current medications, vitals, and PMH were reviewed in the paper chart. Assessment and Plan Assessment and Plan (1) Lumbar stenosis with neurogenic claudication: Assessment and Plan: 04-23-25 left L4-5 L5-S1 TFESI with mild to moderate relief per pt (2) Lumbar radiculopathy: (3) Bulge of lumbar disc without myelopathy: Plan The patient has had over 3 months of moderate to severe low back and LLE pain with functional impairment and inadequate response to conservative care including NSAIDS (unless there are contraindication such as concurrent blood thinners), multiple oral or topical pain medications, and home exercise program/physical therapy.? Patient has completed >6 weeks of guided home exercise program and/or formal physical therapy program without relief of their symptoms.? Patient declining NS consultation f/u 3 months, sooner if needed
== END 2025-05-02 13:33 | disposition home or self-care (01) ==
LOC: PM 13:33
PROVIDERS: Visit Provider Nurse Practitioner
DX: M48.062 Spinal stenosis, lumbar region with neurogenic claudication (principal); M54.16 Radiculopathy, lumbar region; M51.369 Other intervertebral disc degeneration, lumbar region without mention of lumbar back pain or lower extremity pain
CPT/HCPCS: G0463